=== PATIENT | female | born 1995 | race Caucasian/White ===

== ENCOUNTER 2017-03-14 09:13 | Inpatient (IN) | payer BC ==
[~2017-03-14] VITALS: Ht 160 cm; Wt 65.2 kg
[2017-03-14] MEDS ORDERED: NVLGI/PEN (09:29)
[2017-03-14] MEDS ORDERED: LVMI SC (09:30)
[2017-03-14] MEDS ORDERED: SODIUM CHLORIDE 0.9% 1000ML 1,000 ML IV STA ×2 (09:53→11:17)
[2017-03-14] MEDS ORDERED: NovoLIN-R INSULIN PER UNIT CHARGE IV STA (09:53)
[2017-03-14] MEDS ORDERED: SODIUM CHLORIDE 0.9% 1000ML 1,000 ML IV ONE ×2 (09:53→13:34)
[2017-03-14] MEDS ORDERED: KETOROLAC TROMETHAMINE 30 MG/ML VIAL IV STA (10:13)
[2017-03-14] MEDS ORDERED: LORAZEPAM 2 MG/ML 1 ML VIAL IV STA (10:13)
[2017-03-14] MEDS ORDERED: ONDANSETRON INJ 2 MG/ML 2 ML VIAL IV STA (10:13)
[2017-03-14 10:21] LABS: BASO % 0.3 %; BASO ABS # 0.05 K/uL (0-0.2); COMPLETE YES; HEMATOCRIT 49.8 % (37-47); IG% 0.7 %; LYMPH % 14.6 %; LYMPH ABS # 2.15 K/uL (1.2-3.4); MEAN CELL VOLUME 89.9 fL (80-100); MEAN CORPUSCULAR HEMOGLOBIN 30.9 pg (25-34); MEAN CORPUSCULAR HGB CONC 34.3 g/dl (32-36); MEAN PLATELET VOLUME 11.2 fL (7.4-10.4); MONO % 2.6 %; NEUT % 81.8 %; PLATELET COUNT 321 K/uL (130-400); RED BLOOD COUNT 5.54 M/uL (4.2-5.4); WHITE BLOOD COUNT 14.75 K/uL (4.8-10.8)
--- NOTE | 2017-03-14 10:47 | DIAGNOSTIC IMAGING REPORT ---
CHEST ONE VIEW PORTABLE CLINICAL HISTORY: Chest pain. Flu-like symptoms. COMPARISON STUDY: No previous studies for comparison. FINDINGS: Lung volumes are normal. No pneumothorax or pleural effusion is present. There are hazy bibasilar opacities, left greater than right. Cardiac size is normal. Mediastinal contours are normal. There is no evidence of pulmonary edema. IMPRESSION: Hazy bibasilar opacities, left greater than right. Artifact or atelectasis is favored although consolidation could appear similar. Electronically signed by: Stephane Seo M.D. 03/14/2017 10:46 AM Dictated Date/Time: 03/14/2017 10:45 AM
[2017-03-14 10:52] LABS: URINE APPEARANCE CLEAR (CLEAR); URINE BILIRUBIN NEG (NEG); URINE COLOR YELLOW; URINE EPITHELIAL CELL AUTO >30 /lpf (0-5); URINE NITRITE NEG (NEG); URINE SPECIFIC GRAVITY 1.034 (1.000-1.030); UROBILINOGEN NEG (NEG)
[2017-03-14 10:54] LABS: MANUAL MICROSCOPIC REQUIRED? NO; REVIEW REQ? NO
[2017-03-14 11:40] LABS: PREG INTERNAL NEGATIVE QC NEG CLEAR BACKGROUND; PREG INTERNAL POSITIVE QC POS CONTROL LINE
[2017-03-14 11:51] LABS: ALKALINE PHOSPHATASE 95 U/L (45-117)
[2017-03-14] MEDS ORDERED: DKA GOAL RANGE 150-250 mg/dl 1 EA STA (12:02)
[2017-03-14] MEDS ORDERED: INSULIN IV INFUSION PROTOCOL STA ×2 (12:02→13:34)
[2017-03-14] MEDS ORDERED: SEVERE STRESS LEVEL STA (12:02)
[2017-03-14 12:11] LABS: BLOOD UREA NITROGEN 9 mg/dl (7-18); CREATININE 0.75 mg/dl (0.60-1.20); GLUCOSE 262 mg/dl (70-99)
[2017-03-14 12:12] LABS: ALT/SGPT 14 U/L (12-78); AST/SGOT 10 U/L (15-37); BUN/CREATININE RATIO 12.4 (10-20); CARBON DIOXIDE < 5 mmol/L (21-32); CHLORIDE 109 mmol/L (98-107); POTASSIUM 3.5 mmol/L (3.5-5.1); SODIUM 134 mmol/L (136-145)
[2017-03-14] MEDS ORDERED: NSS + 20MEQ KCL 1000ML 1,000 ML IV SCH (12:15)
[2017-03-14] MEDS ORDERED: INSULIN HUMAN REGULAR IV BOLUS 2.5 UNIT in SYRINGE 0 ML IV STA (12:18)
[2017-03-14] MEDS ORDERED: INSULIN REGULAR 250 UNITS in SODIUM CHLORIDE 0.9% 250ML 250 ML IV SCH (12:20)
[2017-03-14] MEDS ORDERED: DEXTROSE 50% 50 ML SYR IV PRN (12:30)
[2017-03-14] MEDS ORDERED: GLUCAGON FOR INJ 1 MG VIAL SQ PRN (12:30)
[2017-03-14] MEDS ORDERED: GLUCOSE 10 TABS/TUBE PO PRN (12:30)
[2017-03-14] MEDS ORDERED: GLUCOSE 40% GEL 15 GM TUBE PO PRN (12:30)
[2017-03-14 12:42] LABS: VEN BLD GAS O2 SATURATION 61.3 %
[2017-03-14] MEDS ORDERED: PIPERACILLIN/TAZOBACTAM 4.5 GM/100ML D5W IV STA (12:42)
[2017-03-14] MEDS ORDERED: D5NSS + 20MEQ KCL 1,000 ML IV SCH (12:45)
[2017-03-14] MEDS ORDERED: PENDING NSS+20mEq KCL IVF SCH (13:45)
[2017-03-14] MEDS ORDERED: ACETAMINOPHEN 325 MG TAB PO PRN (13:45)
[2017-03-14] MEDS ORDERED: MoRPHine SULFATE 2 MG/ML CARP IV PRN (13:45)
[2017-03-14] MEDS ORDERED: PENDING D5 1/2NS+20mEq KCL IVF SCH (13:45)
[2017-03-14] MEDS ORDERED: ZOLPIDEM TARTRATE 5 MG TAB PO PRN (13:45)
[2017-03-14] MEDS ORDERED: SEVERE STRESS LEVEL ONE (13:45)
[2017-03-14] MEDS ORDERED: PHARMACY GLYCEMIC MGMT CONSULT PRN (13:45)
[2017-03-14] MEDS ORDERED: DKA GOAL RANGE 150-250 mg/dl 1 EA ONE (13:45)
[2017-03-14] MEDS ORDERED: DC ALL PREVIOUSLY ORDERED DIABETES MEDS ONE (13:45)
--- NOTE | 2017-03-14 14:02 | History and Physical ---
History & Physical Date & Time of Service: Mar 14, 2017 at 13:52 Chief Complaint: Flu Like Sx Primary Care Physician: No Doctor, Assigned History of Present Illness Source: patient 21 y/o F Hx DM I. Pt developed nausea and then vomiting over the past 2 days and has not been able to tolerate any PO intake. She did not take her insulin for 2 days therefore. She presented to the hospital anxious and hyperventilating. She denies SOB, CP or significant abdominal pain. She did have some lower back pain. Initial labs confirmed severe DKA. 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 Smoking Status: Current Every Day Smoker Alcohol Use: occasionally Allergies Coded Allergies: Vancomycin (Unverified Allergy, Severe, HIVES, 03/14/17) Home Medications Scheduled Insulin Detemir (Levemir), 27 UNITS SC HS Miscellaneous Medications Insulin Aspart (Novolog Flexpen), Unknown Dose Review of Systems Constitutional: No fever, No chills, No sweats Eyes: No worsening of vision ENT: No hearing loss, No unusual epistaxis, No nasal symptoms Respiratory: No cough, No sputum, No wheezing Cardiovascular: No chest pain, No orthopnea, No PND Abdomen: + nausea, + vomiting Musculoskeletal: + muscle pain (lower back pain), No joint pain Genitourinary - Female: No dysuria, No urinary frequency, No urinary urgency Neurologic: + weakness, No memory loss, No paralysis Psychiatric: No depression symptoms Endocrine: No fatigue Hematologic / Lymphatic: No abnormal bleeding/bruising Integumentary: No rash Allergic / Immunologic: No environmental allergies Physical Exam Vital Signs Date Time Temp Pulse Resp B/P (MAP) Pulse Ox O2 Delivery O2 Flow Rate FiO2 03/14/17 13:27 81 18 118/68 97 Room Air 03/14/17 11:40 81 18 123/77 97 Room Air 03/14/17 10:33 91 24 144/77 100 03/14/17 09:47 36.5 104 28 144/90 100 Room Air General Appearance: + pertinent finding (Average weight young female - mild tachypnea - no distress at time of admission) ENT: normal ENT inspection, hearing grossly normal, TMs normal, pharynx normal Neck: supple, no JVD Respiratory/Chest: chest non-tender, lungs clear, normal breath sounds Cardiovascular: regular rate, rhythm, no edema, no gallop Abdomen/GI: normal bowel sounds, non tender, soft Back: normal inspection, no CVA tenderness, no muscle spasm, normal range of motion Extremities/Musculoskelatal: normal inspection, no calf tenderness, normal capillary refill, no pedal edema, normal range of motion Neurologic/Psych: oil dipper II-XII nml as tested, no motor/sensory deficits, alert, normal mood/affect, normal reflexes, oriented x 3 Skin: normal color, warm/dry, no rash Diagnostics Laboratory Results Results Past 24 Hours Test 03/14/17 09:20 03/14/17 09:35 03/14/17 11:10 03/14/17 11:33 Range/Units White Blood Count 14.75 4.8-10.8 K/uL Red Blood Count 5.54 4.2-5.4 M/uL Hemoglobin 17.1 12.0-16.0 g/dL Hematocrit 49.8 37-47 % Mean Corpuscular Volume 89.9 80-100 fL Mean Corpuscular Hemoglobin 30.9 25-34 pg Mean Corpuscular Hemoglobin Concent 34.3 32-36 g/dl Platelet Count 321 130-400 K/uL Mean Platelet Volume 11.2 7.4-10.4 fL Neutrophils (%) (Auto) 81.8 % Lymphocytes (%) (Auto) 14.6 % Monocytes (%) (Auto) 2.6 % Eosinophils (%) (Auto) 0.0 % Basophils (%) (Auto) 0.3 % Neutrophils # (Auto) 12.06 1.4-6.5 K/uL Lymphocytes # (Auto) 2.15 1.2-3.4 K/uL Monocytes # (Auto) 0.38 0.11-0.59 K/uL Eosinophils # (Auto) 0.00 0-0.5 K/uL Basophils # (Auto) 0.05 0-0.2 K/uL RDW Standard Deviation 42.8 36.4-46.3 fL RDW Coefficient of Variation 13.0 11.5-14.5 % Immature Granulocyte % (Auto) 0.7 % Immature Granulocyte # (Auto) 0.11 0.00-0.02 K/uL Urine Color YELLOW Urine Appearance CLEAR CLEAR Urine pH 5.0 4.5-7.5 Urine Specific [place] 1.034 1.000-1.030 Urine Protein 2+ NEG Urine Glucose (UA) 3+ NEG Urine Ketones 4+ NEG Urine Occult Blood TRACE NEG Urine Nitrite NEG NEG Urine Bilirubin NEG NEG Urine Urobilinogen NEG NEG Urine Leukocyte Esterase NEG NEG Urine WBC (Auto) 1-5 0-5 /hpf Urine RBC (Auto) 0-4 0-4 /hpf Urine Hyaline Casts (Auto) 5-10 0-5 /lpf Urine Epithelial Cells (Auto) >30 0-5 /lpf Urine Bacteria (Auto) NEG NEG Sodium Level 134 136-145 mmol/L Potassium Level 3.5 3.5-5.1 mmol/L Chloride Level 109 98-107 mmol/L Carbon Dioxide Level < 5 21-32 mmol/L Anion Gap 24.0 3-11 mmol/L Blood Urea Nitrogen 9 7-18 mg/dl Creatinine 0.75 0.60-1.20 mg/dl Estimated GFR () 133.0 Estimated GFR (Non- 114.7 BUN/Creatinine Ratio 12.4 10-20 Random Glucose 262 70-99 mg/dl Calcium Level 8.0 8.5-10.1 mg/dl Total Bilirubin 0.3 0.2-1 mg/dl Direct Bilirubin < 0.1 0-0.2 mg/dl Aspartate Amino Transf (AST/SGOT) 10 15-37 U/L Alanine Aminotransferase (ALT/SGPT) 14 12-78 U/L Alkaline Phosphatase 95 45-117 U/L Total Protein 7.8 6.4-8.2 gm/dl Albumin 3.5 3.4-5.0 gm/dl Lipase 92 73-393 U/L Human Chorionic Gonadotropin, Qual NEG NEG Test 03/14/17 12:30 03/14/17 13:05 Range/Units Venous Blood pH 7.09 7.36-7.41 Venous Blood Partial Pressure CO2 24 38.0-50.0 mmHg Venous Blood Partial Pressure O2 32 mmHg Venous Blood HCO3 7 mmol/L Venous Blood Oxygen Saturation 61.3 % Venous Blood Base Excess -21.0 mEq/L Microbiology Results 03/14/17 Blood Culture, Received Pending 03/14/17 Blood Culture, Received Pending 03/14/17 Urine Culture, Received Pending Impression Assessment and Plan 21 y/o F Hx DM I. Pt developed nausea and then vomiting over the past 2 days and has not been able to tolerate any PO intake. She did not take her insulin for 2 days therefore. She presented to the hospital anxious and hyperventilating. She denies SOB, CP or significant abdominal pain. She did have some lower back pain. Initial labs confirmed severe DKA. Pt was started on IV insulin and aggressive hydration. She is admitted to the ICU with a DKA protocol including frequent electrolyte monitoring, continued fluids and an insulin drip. An ABG will be repeated as she was markedly acidotic on arrival. Leukocytosis is noted although this is likely due to stress as there is no evidence of an infectious process at present. Smoking cessation advice will be provided. Full code - Heparin prophylaxis Total time for this admit including review of labs, meds, imaging - discussion with pt and ER attending - 38 min Level of Care Critical Care Resuscitation Status FULL RESUSCITATION VTE Prophylaxis VTE Risk Assessment Done? Y/N: Yes Risk Level: Low Given or contraindicated: Unfractionated heparin SQ
--- NOTE | 2017-03-14 14:24 | Pharmacy Progress Note ---
Glycemic Control Intl Consult Date of Service Mar 14, 2017. Scope Glycemic Pharmacist consulted by Dr Caceres on 03/14/17 for glycemic control and to write orders per [facility] inpatient glycemic control protocol Objective Accuchecks BSG (last 24hrs): Test 03/14/17 11:10 Random Glucose 262 mg/dl (70-99) Laboratory Data (last 24hrs) Test 03/14/17 09:20 03/14/17 11:10 White Blood Count 14.75 K/uL Red Blood Count 5.54 M/uL Hemoglobin 17.1 g/dL Hematocrit 49.8 % Mean Corpuscular Volume 89.9 fL Mean Corpuscular Hemoglobin 30.9 pg Mean Corpuscular Hemoglobin Concent 34.3 g/dl Platelet Count 321 K/uL Mean Platelet Volume 11.2 fL Neutrophils (%) (Auto) 81.8 % Lymphocytes (%) (Auto) 14.6 % Monocytes (%) (Auto) 2.6 % Eosinophils (%) (Auto) 0.0 % Basophils (%) (Auto) 0.3 % Neutrophils # (Auto) 12.06 K/uL Lymphocytes # (Auto) 2.15 K/uL Monocytes # (Auto) 0.38 K/uL Eosinophils # (Auto) 0.00 K/uL Basophils # (Auto) 0.05 K/uL Anion Gap 24.0 mmol/L BUN/Creatinine Ratio 12.4 Blood Urea Nitrogen 9 mg/dl Creatinine 0.75 mg/dl Potassium Level 3.5 mmol/L Sodium Level 134 mmol/L Recent Pertinent Medications Outpatient Anti-diabetic Regimen: * Levemir + Novolog (doses need clarified) The patient is currently receiving: * Insulin drip initiated in the ED Assessment & Plan ASSESSMENT: * 21 yo T1DM F admitted with N/V, DKA --> initiated on insulin drip in the ED * Symptoms, serum bicarb, ketones and anion gap all indicative of DKA * A1c ordered with AM labs as patient is unknown to the glycemic service * From admission note, patient has gone at least 48 hours without insulin and insulin doses will need confirmed when patient feeling better * For now, continue insulin drip in addition to dextrose containing fluids to maintain BSGs so that insulin drip stays on throughout the night so that fluid loss and labs can be corrected * Follow up in the AM PLAN FOR INPATIENT GLYCEMIC CONTROL: * Starting IV insulin infusion per DKA protocol * Goal Range 150 - 250 mg/dl * In the critical care setting, continuous IV insulin infusion has been shown to be the best method for achieving glycemic targets. * Please note that the plan above was derived based on current level of insulin resistance and hospital stress. These recommendations are appropriate for inpatient admission only. Plan of care upon discharge will need to be reassessed to avoid potential outpatient hypo/hyperglycemia. Thank you.
--- NOTE | 2017-03-14 15:25 | Critical Care Consultation ---
Critical Care Consultation Date of Consultation: Mar 14, 2017. Attending Physician: Reason for Consultation: DKA History of Present Illness This is a 21 y/o female with hx of type I DM on insulin, presented to the ED complaining of nausea and vomiting X2days. She was anxious and hyperventilating upon arrival to the ED. Patient reports that this morning she was feeling really sick on her stomach and also vomit X1. She didn't eat anything yesterday because couldn't tolerate PO. She didn't take her insulin for past 2 days because she was not feeling well. Patient states that few days ago she was not feeling well, has fullness of the ear. She went to the [facility] and they prescribed her prednisone in tapered dose starting with 60mg. She took the prednisone for past 2 days. In ED her glucose was 262, CO2 <5, anion gap 24, consist with DKA. Also complains of b/l shoulder and back pain which has resolved upon arrival to ICU. Upon examining the patient in ICU, she still complains of nausea but states that she is feeling better than this morning. Patient denies SOB, chest pain, abdominal pain, palpitation, fever, or any other symptoms. 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: student Allergies Coded Allergies: Vancomycin (Unverified Allergy, Severe, HIVES, 03/14/17) Home Medications Scheduled Insulin Detemir (Levemir), 27 UNITS SC HS Miscellaneous Medications Insulin Aspart (Novolog Flexpen), Unknown Dose Current Inpatient Medications Current Inpatient Medications Medications (Trade) Dose Ordered Sig/Sharron Route Start Time Stop Time Status Last Admin Dose Admin Insulin Human Regular 250 units/ Sodium Chloride 252.5 ml @ 0 mls/hr TODAY@1220 IV 03/14/17 12:20 03/14/17 19:00 03/14/17 13:23 2.4 MLS/HR Glucose (Glucose 40% Gel) UD PRN PO 03/14/17 12:30 04/13/17 12:29 Glucose (Glucose Chew Tab) 1 tabs UD PRN PO 03/14/17 12:30 04/13/17 12:29 Dextrose (Dextrose 50% 50ML Syringe) 50 ml UD PRN IV 03/14/17 12:30 04/13/17 12:29 Glucagon (Glucagon Inj) 1 mg UD PRN SQ 03/14/17 12:30 04/13/17 12:29 Potassium Chloride/Dextrose/ Sod Cl 1,000 ml @ 200 mls/hr Q5H IV 03/14/17 12:45 03/14/17 17:44 03/14/17 13:24 200 MLS/HR Insulin Aspart (novoLOG ASPART) SLIDING SCALE PCHS SC 03/14/17 19:00 04/13/17 18:59 UNV Sodium Chloride 1,000 ml @ 999 mls/hr Q1H1M ONCE IV 03/14/17 13:34 03/14/17 14:34 UNV Miscellaneous Information (PENDING NSS+20mEq KCL IVF) 1 ea Q2H N/A 03/14/17 13:45 04/13/17 13:44 UNV Miscellaneous Information (PENDING D5 1/ 2NS+20mEq KCL IVF) 1 ea Q2H N/A 03/14/17 13:45 04/13/17 13:44 UNV Miscellaneous Information (Consult Glycemic Management Pharmacy) 1 ea UD PRN N/A 03/14/17 13:45 04/13/17 13:44 Heparin Sodium (Porcine) (Heparin Sq 5000 Unit/0.5ml) 5,000 unit Q8H SQ 03/14/17 13:45 04/13/17 13:44 UNV Acetaminophen (Tylenol Tab) 650 mg Q4H PRN PO 03/14/17 13:45 04/13/17 13:44 Zolpidem Tartrate (Ambien Tab) 5 mg HSZ PRN PO 03/14/17 13:45 04/13/17 13:44 Morphine Sulfate (MoRPHine SULFATE INJ) 2 mg Q2H PRN IV 03/14/17 13:45 03/28/17 13:44 Review of Systems Constitutional: No fever, No chills, No sweats, No weight loss ENT: No sore throat Respiratory: No cough, No wheezing, No shortness of breath, No dyspnea on exertion, No dyspnea at rest Cardiovascular: No chest pain, No edema, No palpitations Abdomen: + nausea, + vomiting, No pain, No diarrhea, No constipation Musculoskeletal: + problem reported (lower back pain) Genitourinary - Female: No dysuria, No urinary frequency, No urinary urgency Neurologic: + weakness, No balance problems Hematologic / Lymphatic: No abnormal bleeding/bruising Integumentary: No rash Physical Exam Date Time Temp Pulse Resp B/P (MAP) Pulse Ox O2 Delivery O2 Flow Rate FiO2 03/14/17 13:27 81 18 118/68 97 Room Air 03/14/17 11:40 81 18 123/77 97 Room Air 03/14/17 10:33 91 24 144/77 100 03/14/17 09:47 36.5 104 28 144/90 100 Room Air General Appearance: well-appearing, WD/WN, no apparent distress Head: normocephalic, atraumatic Eyes: PERRLA, EOMI, conjunctivae normal ENT: normal ear exam, normal nasal exam, normal mouth exam, normal throat exam Neck: no tenderness, trachea midline, supple Respiratory: breath sounds normal, clear to auscultation, no respiratory distress Cardiovasular: regular rate/rhythm, normal S1S2, no M/G/R Abdomen: non tender, normal bowel sounds, no masses Neuro: alert, oriented x 3, normal sensation, normal speech Psychiatric: normal affect Laboratory Results Last 24 Hours Test 03/14/17 09:20 03/14/17 09:35 03/14/17 11:10 03/14/17 11:33 White Blood Count 14.75 K/uL Red Blood Count 5.54 M/uL Hemoglobin 17.1 g/dL Hematocrit 49.8 % Mean Corpuscular Volume 89.9 fL Mean Corpuscular Hemoglobin 30.9 pg Mean Corpuscular Hemoglobin Concent 34.3 g/dl Platelet Count 321 K/uL Mean Platelet Volume 11.2 fL Neutrophils (%) (Auto) 81.8 % Lymphocytes (%) (Auto) 14.6 % Monocytes (%) (Auto) 2.6 % Eosinophils (%) (Auto) 0.0 % Basophils (%) (Auto) 0.3 % Neutrophils # (Auto) 12.06 K/uL Lymphocytes # (Auto) 2.15 K/uL Monocytes # (Auto) 0.38 K/uL Eosinophils # (Auto) 0.00 K/uL Basophils # (Auto) 0.05 K/uL RDW Standard Deviation 42.8 fL RDW Coefficient of Variation 13.0 % Immature Granulocyte % (Auto) 0.7 % Immature Granulocyte # (Auto) 0.11 K/uL Urine Color YELLOW Urine Appearance CLEAR Urine pH 5.0 Urine Specific [place] 1.034 Urine Protein 2+ Urine Glucose (UA) 3+ Urine Ketones 4+ Urine Occult Blood TRACE Urine Nitrite NEG Urine Bilirubin NEG Urine Urobilinogen NEG Urine Leukocyte Esterase NEG Urine WBC (Auto) 1-5 /hpf Urine RBC (Auto) 0-4 /hpf Urine Hyaline Casts (Auto) 5-10 /lpf Urine Epithelial Cells (Auto) >30 /lpf Urine Bacteria (Auto) NEG Sodium Level 134 mmol/L Potassium Level 3.5 mmol/L Chloride Level 109 mmol/L Carbon Dioxide Level < 5 mmol/L Anion Gap 24.0 mmol/L Blood Urea Nitrogen 9 mg/dl Creatinine 0.75 mg/dl Estimated GFR () 133.0 Estimated GFR (Non- 114.7 BUN/Creatinine Ratio 12.4 Random Glucose 262 mg/dl Calcium Level 8.0 mg/dl Total Bilirubin 0.3 mg/dl Direct Bilirubin < 0.1 mg/dl Aspartate Amino Transf (AST/SGOT) 10 U/L Alanine Aminotransferase (ALT/SGPT) 14 U/L Alkaline Phosphatase 95 U/L Total Protein 7.8 gm/dl Albumin 3.5 gm/dl Lipase 92 U/L Human Chorionic Gonadotropin, Qual NEG Test 03/14/17 12:30 03/14/17 13:05 Venous Blood pH 7.09 Venous Blood Partial Pressure CO2 24 mmHg Venous Blood Partial Pressure O2 32 mmHg Venous Blood HCO3 7 mmol/L Venous Blood Oxygen Saturation 61.3 % Venous Blood Base Excess -21.0 mEq/L Bedside Lactic Acid Venous 1.61 mmol/L Assessment & Plan This is a 21 y/o female with hx of type I DM on insulin presented to the ED with DKA. Patient is admitted to the ICU for close monitoring. In ED glucose was 262, CO2 <5, and anion gap 24. Patient DKA most likely 2/2 to viral illness combined with high dose of prednisone. Neuro - * CAM ICU: NEGATIVE. * Acetaminophen 650mg q4h prn * Morphine 2mg q2h prn Cardiac - * EKG in ED showed NSR * no h/o cardiac problem Respiratory - * No h/o pulmonary disease. * On room air maintaining O2 * Monitor pulse oximetry. * Supplemental O2 as needed. * VBG q4h per DKA protocol * CXR showed hazy bibasilar opacities, left greater than right. Artifact or atelectasis is favored although consolidation could appear similar. Received bolus of Zosyn in ED. It is very less likely the X-ray finding infectious in nature. Will continue to monitor. GI - * Diet : diabetics diet RENAL/LYTES - * Continue with D5 NSS+20meq KCL @200ml/hr * Corrected Sodium is 138 * Closely monitor electrolytes, check per DKA protocol (q4h) and supplement as needed - * No Chan * Full bathroom privilege ENDO - * Diabetics Ketoacidosis/hx of IDDM type I * On admission glucose was 262, CO2 <5, anion gap 24 * Continue with hydration, D5 NSS+20meq KCL @200mls/hr * On insulin drip and transition to IV insulin per DKA protocol * Check electrolytes and VGB q4h and correct as needed HEME - * No h/o of heme problem * H&H 17.1 and 49.8, most likely 2/2 dehydration ID - * No concerns for infection at this point. Most likely had viral illness * Elevated WBC, most likely 2/2 stress, no signs of infection at this moment. Patient received bolus of Zosyn in ED. * Will monitor fever curve. * BCx and UCx are pending LINES/IV ACCESS - * PIVs intact DVT PROPHYLAXIS - * Heparin 5000unit q8h * * * Resident Physician Supervision Note: I was present with Dr. Elizabeth Cuevsa during the history and exam. I discussed the case with the resident and agree with the findings and plan as documented in the note. 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 She stopped taking insulin as she was not able to eat. She was found to have DKA. Patient stated that she developed right ear fullness couple of days ago. She was prescribed prednisone by urgent care center. She took 60 mg yesterday and 50 mg today. Patient was given IV insulin, started on IV fluids and transferred critically ill to the surgical intensive care unit for further management. On my physical examination she looks slightly dehydrated with dry mouth mucosa. She is alert and oriented 3. Lungs were clear, heart was beating regularly, abdomen was soft and nontender with good bowel sounds, lower extremity swelling well-perfused. Right ear examination revealed competent tympanitic membrane, no discharge. Presentation is consistent with DKA likely promoted by viral infection, exacerbated by prednisone and lack of insulin. No obvious bacterial infection. We will continue with fluid resuscitation, replace electrolytes including severe hypophosphatemia and hypokalemia, continue with insulin drip closely watching metabolic parameters. Patient's clinical condition and management was extensively discussed with patient and her parents at the bedside. She is full code. CCT 32 min. Documented By: True Biswas
[2017-03-14 15:40] VITALS: BP 114/74; PULSE 94; TEMP 36.1; O2SAT 95; BMI 25.0
[2017-03-14] MEDS ORDERED: INFLUENZA ADMINISTRATION CHARGE ONE (16:15)
[2017-03-14] MEDS ORDERED: INFLUENZA VIRUS QUAD VACCINE 0.5 ML SYR IM. ONE (16:15)
[2017-03-14] MEDS ORDERED: PNEUMOCOCCAL POLYSACCHARIDES 25 MCG/0.5 ML VIAL/SYR IM. ONE (16:15)
[2017-03-14] MEDS ORDERED: PNEUMOCOCCAL ADMINISTRATION CHARGE ONE (16:15)
[2017-03-14 16:31] LABS: INR 0.9 (0.9-1.1); PROTHROMBIN TIME (PATIENT) 9.4 SECONDS (9.0-12.0)
[2017-03-14 16:32] LABS: ISTAT ALLEN TEST Pass; ISTAT ARTERIAL BLOOD GAS HCO3 7 meq/L (19-24); ISTAT ARTERIAL BLOOD GAS PCO2 19 mmHg (35-46); ISTAT ARTERIAL BLOOD GAS PO2 113 mmHg (80-95); ISTAT ARTERIAL BLOOD GAS pH 7.15 (7.35-7.45); ISTAT CARBON DIOXIDE 7 mEq/l (24-31); ISTAT DELIVERY SYSTEM Room Air; ISTAT SITE R Radial
--- NOTE | 2017-03-14 16:58 | EMERGENCY ROOM VISIT NOTE ---
History Report prepared by [place]: David Boateng Under the Supervision of: Dr. Joseluis Vincent M.D. First contact with patient: 09:45 Chief Complaint: VOMITING Stated Complaint: FLU LIKE SX Nursing Triage Summary: pt here with n/v x 2 days. pt is a iddm. pt states has not taken insulin x 2 days. did not eat yesterday. pt states has pain in bilateral lower back and feels tingly all over. pt very anxious upon arrival and hyperventilating. History of Present Illness The patient is a 21 year old female who presents to the Emergency Room with complaints of nausea and vomiting. She is a type I diabetic. She's felt sick for 2 or 3 days now. His started with right earache and sore throat. Nausea and vomiting since yesterday. She did not take her insulin because she was not eating anything. She has had a sore throat and cough at times with some white phlegm she just says she feels that she has diffuse body aches and cramps in her lower abdomen. Denies denies dysuria hematuria. No diarrhea. No fall or trauma. No history of similar. Source of History: patient, parent, family Review of Systems See HPI for pertinent positives & negatives. A total of 10 systems reviewed and were otherwise negative. Past Medical & Surgical Medical Problems: (1) DKA, type 1 (2) Type 1 diabetes mellitus Old medical records were attempted to be reviewed but there are no old records at this hospital. Nurse's notes were reviewed and I agree with. Denies history of DKA Family History No pertinent family history stated. Social History Smoking Status: Never Smoker Drug Use: none Marital Status: single Occupation Status: [employer] student Current/Historical Medications Scheduled Insulin Detemir (Levemir), 27 UNITS SC HS Miscellaneous Medications Insulin Aspart (Novolog Flexpen), Unknown Dose Allergies Coded Allergies: Vancomycin (Unverified Allergy, Severe, HIVES, 03/14/17) Physical Exam Vital Signs Date Time Temp Pulse Resp B/P (MAP) Pulse Ox O2 Delivery O2 Flow Rate FiO2 03/14/17 13:27 81 18 118/68 97 Room Air 03/14/17 11:40 81 18 123/77 97 Room Air 03/14/17 10:33 91 24 144/77 100 03/14/17 09:47 36.5 104 28 144/90 100 Room Air Physical Exam General: Well developed well nourished mild to moderately ill-appearing young female who appears mildly tachypneic and anxious but otherwise in no acute distress, breathing comfortably on room air. Normal speech HEENT: Normal cephalic atraumatic. Pupils are equal round and reactive to light. Sclerae are anicteric. Extraocular movements are intact. Oropharynx is pink with somewhat dry mucous membranes. No swelling of the mouth lips or tongue. Neck: Supple with a midline trachea. No meningeal signs or stiffness, no JVD or bruits. No Stridor. Chest: Clear to auscultation bilaterally. No wheezes or rhonchi. No increased work of breathing. Heart: Regular rate and rhythm without murmurs or gallops. Abdomen: Soft nontender, nondistended without rebound guarding or rigidity. Extremities: No cyanosis clubbing or edema. No calf tenderness or assymetry Spine/Back. Non tender to palpation. No CVA tenderness Skin: Good turgor without rashes. Neurologic exam: Cranial nerves two through 12 are intact. Motor and sensation are intact and symmetrical throughout. Medical Decision & Procedures ER Provider Diagnostic Interpretation: X-ray results as stated below per interpretation by me and the radiologist: CHEST ONE VIEW PORTABLE FINDINGS: Lung volumes are normal. No pneumothorax or pleural effusion is present. There are hazy bibasilar opacities, left greater than right. Cardiac size is normal. Mediastinal contours are normal. There is no evidence of pulmonary edema. IMPRESSION: Hazy bibasilar opacities, left greater than right. Artifact or atelectasis is favored although consolidation could appear similar. Electronically signed by: Stephane Seo M.D. 03/14/2017 10:46 AM Laboratory Results 03/14/17 09:20 Red Blood Count 5.54, Mean Corpuscular Volume 89.9, Mean Corpuscular Hemoglobin 30.9, Mean Corpuscular Hemoglobin Concent 34.3, Mean Platelet Volume 11.2, Neutrophils (%) (Auto) 81.8, Lymphocytes (%) (Auto) 14.6, Monocytes (%) (Auto) 2.6, Eosinophils (%) (Auto) 0.0, Basophils (%) (Auto) 0.3, Neutrophils # (Auto) 12.06, Lymphocytes # (Auto) 2.15, Monocytes # (Auto) 0.38, Eosinophils # (Auto) 0.00, Basophils # (Auto) 0.05 Test 03/14/17 09:20 03/14/17 09:35 03/14/17 11:10 03/14/17 11:33 White Blood Count 14.75 K/uL (4.8-10.8) Red Blood Count 5.54 M/uL (4.2-5.4) Hemoglobin 17.1 g/dL (12.0-16.0) Hematocrit 49.8 % (37-47) Mean Corpuscular Volume 89.9 fL (80-100) Mean Corpuscular Hemoglobin 30.9 pg (25-34) Mean Corpuscular Hemoglobin Concent 34.3 g/dl (32-36) Platelet Count 321 K/uL (130-400) Mean Platelet Volume 11.2 fL (7.4-10.4) Neutrophils (%) (Auto) 81.8 % Lymphocytes (%) (Auto) 14.6 % Monocytes (%) (Auto) 2.6 % Eosinophils (%) (Auto) 0.0 % Basophils (%) (Auto) 0.3 % Neutrophils # (Auto) 12.06 K/uL (1.4-6.5) Lymphocytes # (Auto) 2.15 K/uL (1.2-3.4) Monocytes # (Auto) 0.38 K/uL (0.11-0.59) Eosinophils # (Auto) 0.00 K/uL (0-0.5) Basophils # (Auto) 0.05 K/uL (0-0.2) RDW Standard Deviation 42.8 fL (36.4-46.3) RDW Coefficient of Variation 13.0 % (11.5-14.5) Immature Granulocyte % (Auto) 0.7 % Immature Granulocyte # (Auto) 0.11 K/uL (0.00-0.02) Urine Color YELLOW Urine Appearance CLEAR (CLEAR) Urine pH 5.0 (4.5-7.5) Urine Specific [place] 1.034 (1.000-1.030) Urine Protein 2+ (NEG) Urine Glucose (UA) 3+ (NEG) Urine Ketones 4+ (NEG) Urine Occult Blood TRACE (NEG) Urine Nitrite NEG (NEG) Urine Bilirubin NEG (NEG) Urine Urobilinogen NEG (NEG) Urine Leukocyte Esterase NEG (NEG) Urine WBC (Auto) 1-5 /hpf (0-5) Urine RBC (Auto) 0-4 /hpf (0-4) Urine Hyaline Casts (Auto) 5-10 /lpf (0-5) Urine Epithelial Cells (Auto) >30 /lpf (0-5) Urine Bacteria (Auto) NEG (NEG) Total Bilirubin 0.3 mg/dl (0.2-1) Direct Bilirubin < 0.1 mg/dl (0-0.2) Aspartate Amino Transf (AST/SGOT) 10 U/L (15-37) Alanine Aminotransferase (ALT/SGPT) 14 U/L (12-78) Alkaline Phosphatase 95 U/L (45-117) Total Protein 7.8 gm/dl (6.4-8.2) Albumin 3.5 gm/dl (3.4-5.0) Lipase 92 U/L (73-393) Human Chorionic Gonadotropin, Qual NEG (NEG) Influenza Type A Antigen Neg for Influ A (NEG) Influenza Type B Antigen Neg for Influ B (NEG) Test 03/14/17 12:30 03/14/17 13:05 Venous Blood pH 7.09 (7.36-7.41) Venous Blood Partial Pressure CO2 24 mmHg (38.0-50.0) Venous Blood Partial Pressure O2 32 mmHg Venous Blood HCO3 7 mmol/L Venous Blood Oxygen Saturation 61.3 % Venous Blood Base Excess -21.0 mEq/L Bedside Lactic Acid Venous 1.61 mmol/L (0.90-1.70) Laboratory studies as stated above per my review. Medications Administered Medications (Trade) Dose Ordered Sig/Sharron Route Start Time Stop Time Status Last Admin Dose Admin Sodium Chloride 1,000 ml @ 999 mls/hr Q1H1M STAT IV 03/14/17 09:53 03/14/17 10:53 DC 03/14/17 10:09 999 MLS/HR Sodium Chloride 1,000 ml @ 200 mls/hr Q5H ONCE IV 03/14/17 09:53 03/14/17 12:04 DC 03/14/17 10:31 200 MLS/HR Insulin Human Regular (novoLIN-R U-100 PER UNIT) 10 units NOW STAT IV 03/14/17 09:53 03/14/17 09:56 DC 03/14/17 10:08 10 UNITS Ketorolac Tromethamine (Toradol Inj) 30 mg NOW STAT IV 03/14/17 10:13 03/14/17 10:14 DC 03/14/17 10:31 30 MG Ondansetron HCl (Zofran Inj) 4 mg NOW STAT IV 03/14/17 10:13 03/14/17 10:14 DC 03/14/17 10:31 4 MG Lorazepam (Ativan Inj) 0.5 mg NOW STAT IV 03/14/17 10:13 03/14/17 10:14 DC 03/14/17 10:32 0.5 MG Sodium Chloride 1,000 ml @ 999 mls/hr Q1H1M STAT IV 03/14/17 11:17 03/14/17 12:19 DC 03/14/17 11:17 999 MLS/HR Insulin Human Regular 2.5 unit/ Syringe 2.5 ml @ 5 mls/min NOW STAT IV 03/14/17 12:18 03/14/17 12:19 DC 03/14/17 13:16 5 MLS/MIN Insulin Human Regular 250 units/ Sodium Chloride 252.5 ml @ 0 mls/hr TODAY@1220 IV 03/14/17 12:20 03/15/17 11:29 03/14/17 13:23 2.4 MLS/HR Potassium Chloride/Dextrose/ Sod Cl 1,000 ml @ 200 mls/hr Q5H IV 03/14/17 12:45 03/14/17 17:44 03/14/17 13:24 200 MLS/HR Piperacillin Sod/ Tazobactam Sod (Zosyn Iv) 4.5 gm NOW STAT IV 03/14/17 12:42 03/14/17 12:43 DC 03/14/17 14:17 4.5 GM ECG Indication: vomiting Rate (beats per minute): 81 Rhythm: normal sinus Findings: no acute ischemic change, no ectopy, other (No findings to suggest hypokalemia) Comparison ECG Date: no prior available ED Course 0943: Past medical records reviewed. The patient was evaluated in room B4B, and a complete history and physical examination were performed. 0953: Ordered Novolin-R U-100 per unit 10 units IV, Sodium Chloride 1000 ml @ 200 mls/hr IV, Sodium Chloride 1000 ml @ 999 mls/hr IV. 1013: Ordered Ativan Inj 0.5 mg IV, Zofran Inj 0.5 mg IV, Toradol Inj 30 mg IV. 1117: Ordered Sodium Chloride 1000 ml @ 999 mls/hr IV. 1212: Upon reevaluation, the patient is resting comfortably. I discussed the results and treatment plan with the patient. She verbalized agreement of the treatment plan. The patient will be evaluated for further management. 1215: Ordered Potassium Chloride/Sodium Chloride 2.5 ml @ 5 mls/hr IV. 1230: Ordered Glucagon 1 mg SQ, Dextrose 50% 50 mL IV, Glucose Chew Tab PO, Glucose 40% Gel PO. Medical Decision Differentials include, but are not limited to DKA, dehydration, infection, electrolyte or metabolic abnormalities, This patient comes in as described above. She is placed in room B4. She has felt ill for the last several days. She has a type I diabetic. Her blood sugar on route was over 400 apparently. IV access was established and she was hydrated with IV normal saline she received several liters in the emergency department. I also gave her 10 units regular insulin IV. Her white count came back mildly elevated. Chest x-ray shows atelectasis versus infiltrate in the base. She was covered with antibiotics was given Zosyn 4.5 g IV. We also started on insulin drip. Her CO2 came back markedly low at less than 5. The rest of her electrolytes looked reasonably okay however and a potassium fading was slightly in the low side. We changed her fluids to include potassium as she was further rehydrated. And also added dextrose when her blood sugar was less than 200. I did consult the [facility] hospitalist and they saw her in the emergency department. She will be admitted for further treatment and evaluation. Medication Reconcilliation Current Medication List: was personally reviewed by me Blood Pressure Screening Patient's blood pressure: Elevated blood pressure Blood pressure disposition: Elevated BP felt to be situational Consults Time Called: 1200 Consulting Physician: Dr. Nicki JUAN Returned Call: 1210 Discussed the patient's case. The patient will be evaluated for further management. Impression Primary Impression: DKA, type 1 Additional Impression: Dehydration Critical Care Due to the patient's need for multiple IV interventions and significant acidosis /DKA, I have personally spent greater than 30 minutes of critical care time in the direct management of this patient. This includes bedside care, interpretation of diagnostic studies, and testing, discussion with consultants, patient, and family members, and other required patient management activities. This 30 minutes is in excess of all separately billable procedures. Scribe Attestation The scribe's documentation has been prepared under my direction and personally reviewed by me in its entirety. I confirm that the note above accurately reflects all work, treatment, procedures, and medical decision making performed by me. Departure Information Dispostion Being Evaluated By Hospitalist Referrals No Doctor, Assigned (PCP) Patient Instructions My [facility] Problem Qualifiers
[2017-03-14 17:00] VITALS: BP 121/78; PULSE 87; O2SAT 100
[2017-03-14 17:16] LABS: BUN/CREATININE RATIO 9.7 (10-20); CALCIUM 7.5 mg/dl (8.5-10.1); CREATININE 0.85 mg/dl (0.60-1.20); MAGNESIUM 1.9 mg/dl (1.8-2.4); PHOSPHORUS 0.7 mg/dl (2.5-4.9); POTASSIUM 3.3 mmol/L (3.5-5.1)
[2017-03-14] MEDS ORDERED: POTASSIUM PHOS 3 MMOL/1 ML INFUSION IV STA (17:28)
[2017-03-14] MEDS ORDERED: POTASSIUM CHLORIDE 20 MEQ TABCR PO STA (17:28)
[2017-03-14 18:00] VITALS: BP 106/58; PULSE 94; O2SAT 99
[2017-03-14] MEDS ORDERED: POTASSIUM PHOSPHATE INJ 30 MMOL in SODIUM CHLORIDE 0.9% 500ML 500 ML IV ONE (18:00)
[2017-03-14] MEDS: D5NSS + 20MEQ KCL 1,000 ML IV SCH (18:16)
[2017-03-14] MEDS ORDERED: POTASSIUM CHLORIDE 20 MEQ TABCR PO ONE (18:30)
[2017-03-14] MEDS: INSULIN ASPART 100 UNITS/ML 3 ML PEN SC SCH ×2 (18:52→21:00)
[2017-03-14 20:00] VITALS: BP 114/61; PULSE 100; TEMP 37; O2SAT 100
[2017-03-14 20:57] LABS: BUN/CREATININE RATIO 7.9 (10-20); CALCIUM 7.5 mg/dl (8.5-10.1); CREATININE 0.8 mg/dl (0.60-1.20); MAGNESIUM 1.7 mg/dl (1.8-2.4); PHOSPHORUS 1.2 mg/dl (2.5-4.9); POTASSIUM 3.5 mmol/L (3.5-5.1)
[2017-03-14 21:12] LABS: BETA-HYDROXYBUTYRATE 10.25 mg/dL (0.2-2.81)
[2017-03-14] MEDS ORDERED: MAGNESIUM SULFATE 1GM / D5W 1 GM in PREMIXED IN D5W 100 ML IV STA (21:15)
[2017-03-14] MEDS: HEPARIN SOD 5000 UNIT/0.5 ML CARP SQ SCH (21:43)
[2017-03-14 22:00] VITALS: BP 112/57; PULSE 87; O2SAT 100
[2017-03-14 23:59] VITALS: O2SAT 98
[2017-03-15] VITALS (12 sets, daily range): BP systolic 101–112; BP diastolic 51–75; PULSE 77–93; TEMP 36.3–36.8; O2SAT 98; Ht 160 cm; Wt 65.2 kg
[2017-03-15] MEDS: D5NSS + 20MEQ KCL 1,000 ML IV SCH ×3 (00:12→11:08)
[2017-03-15 00:55] LABS: BLOOD UREA NITROGEN 7 mg/dl (7-18); BUN/CREATININE RATIO 11.9 (10-20); CALCIUM 7.4 mg/dl (8.5-10.1); CARBON DIOXIDE 16 mmol/L (21-32); CHLORIDE 116 mmol/L (98-107); CREATININE 0.57 mg/dl (0.60-1.20); GLUCOSE 221 mg/dl (70-99); MAGNESIUM 2.3 mg/dl (1.8-2.4); PHOSPHORUS 1.7 mg/dl (2.5-4.9); POTASSIUM 3.6 mmol/L (3.5-5.1); SODIUM 143 mmol/L (136-145)
[2017-03-15] MEDS ORDERED: POTASSIUM PHOS 3 MMOL/1 ML INFUSION IV STA ×2 (01:11→07:52)
[2017-03-15] MEDS ORDERED: POTASSIUM PHOSPHATE INJ 21 MMOL in SODIUM CHLORIDE 0.9% 500ML 500 ML IV SCH (01:30)
[2017-03-15 04:20] LABS: BLOOD UREA NITROGEN 6 mg/dl (7-18); CALCIUM 7.3 mg/dl (8.5-10.1); CARBON DIOXIDE 16 mmol/L (21-32); CHLORIDE 120 mmol/L (98-107); CREATININE 0.46 mg/dl (0.60-1.20); GLUCOSE 158 mg/dl (70-99); PHOSPHORUS 1.6 mg/dl (2.5-4.9); POTASSIUM 3.3 mmol/L (3.5-5.1); SODIUM 144 mmol/L (136-145)
[2017-03-15] MEDS: HEPARIN SOD 5000 UNIT/0.5 ML CARP SQ SCH (06:00)
[2017-03-15] MEDS ORDERED: POTASSIUM PHOSPHATE INJ 30 MMOL in SODIUM CHLORIDE 0.9% 500ML 500 ML IV SCH (08:00)
[2017-03-15] MEDS: INSULIN ASPART 100 UNITS/ML 3 ML PEN SC SCH ×2 (08:30→12:32)
[2017-03-15] MEDS ORDERED: INSULIN DETEMIR FLEXPEN/FLEX TOUCH 100 UNITS/ML 3ML SC ONE (08:45)
[2017-03-15 09:04] LABS: BLOOD UREA NITROGEN 4 mg/dl (7-18); BUN/CREATININE RATIO 7.6 (10-20); CALCIUM 7.6 mg/dl (8.5-10.1); CARBON DIOXIDE 18 mmol/L (21-32); CHLORIDE 118 mmol/L (98-107); CREATININE 0.46 mg/dl (0.60-1.20); GLUCOSE 146 mg/dl (70-99); POTASSIUM 3.2 mmol/L (3.5-5.1); SODIUM 144 mmol/L (136-145)
[2017-03-15 09:27] LABS: PHOSPHORUS 1.4 mg/dl (2.5-4.9)
--- NOTE | 2017-03-15 09:28 | Clinical Documentation Query ---
CLINICAL DOCUMENTATION QUERY 21 y/o F Hx DM I. Pt developed nausea and then vomiting over the past 2 days and has not been able to tolerate any PO intake. In your clinical opinion is this patient being managed for: ( ) Hypo-osmolality and hyponatremia, resolved in a diabetic patient requiring IV hydration ( ) Not Agree ( ) Other explanation of clinical findings (Please Explain) ( ) Unable to determine (Please Define) ( ) Need to Discuss The medical record reflects the following clinical findings, treatment, and risk factors. Clinical Indicators: Na 133, documented dehydration, vomiting x 2 days, decreased PO intake Treatment: IV hydration, monitor, serial lab monitoring Risk Factors: Type I DM, vomiting, DKA Please clarify and document your clinical opinion in the progress notes and discharge summary. Terms such as "probable", "suspected", "likely", "questionable", "possible", or "still to be ruled out" are acceptable. IF IN AGREEMENT, YOU MUST DOCUMENT ABOVE DIAGNOSTIC STATEMENT IN DAILY PROGRESS NOTES AND DISCHARGE SUMMARY. This document is not part of the patient's record. Thank You, Nivia Breaux RN [phone]
--- NOTE | 2017-03-15 11:01 | Critical Care Progress Note ---
Critical Care Progress Note Date of Service Mar 15, 2017. Attending Dr. Biswas Subjective Patient was seen at the bedside. No acute event overnight. She is tolerating PO well. Denies any chest pain, SOB, palpitation, abd pain, nausea, vomiting or any other symptoms. Objective Vital signs were reviewed GENERAL - Alert, well appearing, sitting in bed, no acute distress HEAD - NC/AT EYES - PERRL with EOMI bilaterally. Sclera anicteric. EARS - No deformities of external structures noted on gross examination bilaterally. MOUTH/OROPHARYNX - Without perioral cyanosis. Lips, buccal mucosa, and tongue normal and mucous membranes are moist. NECK - Supple, No lymphadenopathy, No nuchal rigidity LUNGS - Chest wall symmetric. Good air movement bilaterally. No wheezing or rhonchi was noted. CARDIAC - RRR, normal S1/S2. No murmur, rubs, or gallops appreciated. ABDOMEN - Soft, non-tender, normo-active bowel sounds, no masses, no rebound or guarding. No palpable masses, hepatosplenomegaly, or ascites noted. EXTREMITIES - No edema, No clubbing/peripheral cyanosis. Calves supple. SKIN - Warm, dry, intact. No rash NEUROLOGIC - A&Ox3. Speech normal. Sensory intact to light touch throughout. PSYCH - Mood and affect appropriate. Assessment & Plan This is a 21 y/o female with hx of type I DM on insulin presented to the ED with DKA. Patient DKA most likely 2/2 to viral illness combined with high dose of prednisone and lack of insulin. Patient is doing well and will be transitioned to her regular insulin. Her anion gap is 8 and glucose in 140s. Patient is stable to be downgrade and probably discharge today. Patient needs to follow up with PCP in 1 wk after discharge from hospital. Spoke with case management and it will be arranged. Neuro - * CAM ICU: NEGATIVE. * Acetaminophen 650mg q4h prn * Morphine 2mg q2h prn Cardiac - * EKG in ED showed NSR * no h/o cardiac problem Respiratory - * No h/o pulmonary disease. * On room air maintaining O2 * Monitor pulse oximetry. * Supplemental O2 as needed. * CXR showed hazy bibasilar opacities, left greater than right. Artifact or atelectasis is favored although consolidation could appear similar. Received bolus of Zosyn in ED. It is very less likely the X-ray finding infectious in nature. Will continue to monitor. GI - * Diet : diabetics diet RENAL/LYTES - * s/p IVF * Corrected potassium and phos - * No Chan * Full bathroom privilege ENDO - * Diabetics Ketoacidosis/hx of IDDM type I * On admission glucose was 262, CO2 <5, anion gap 24 * Anion gap closed and glucose is in 140s * Transitioned to IV insulin * Corrected potassium and phos HEME - * Stable H&H ID - * No concerns for infection at this point. Most likely had viral illness * Elevated WBC, most likely 2/2 stress, no signs of infection at this moment. Patient received bolus of Zosyn in ED. * Will monitor fever curve. * BCx and UCx NGTD LINES/IV ACCESS - * PIVs intact DVT PROPHYLAXIS - * Heparin 5000unit q8h * * Resident Physician Supervision Note: I was present with Dr. Elizabeth Cuevas during the history and exam. I discussed the case with the resident and agree with the findings and plan as documented in the note. 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 She stopped taking insulin as she was not able to eat. She was found to have DKA. Patient stated that she developed right ear fullness couple of days ago. She was prescribed prednisone by urgent care center. She took prednisone 60 and 50 mg prior to admission. Patient was diagnosed with diabetes ketoacidosis likely due to lack of insulin and steroid consumption. On physical examination patient looks dehydrated, complained of some right ear fullness without any abnormalities on tympanitic membrane examination. Patient was volume resuscitated, treated with insulin drip over the night. Severe hypokalemia and hypophosphatemia was replaced. Anion gap was completely closed. Patient is able to tolerate diet well without nausea or vomiting. Insulin drip was discontinued, subcutaneous insulin home regimen was restarted. Patient was recommended to stop taking steroids, no treatment with antibiotic is recommended. Will discharge patient later today. T < 30 min. Consults & Procedures Consultants: glycemic consult Procedures: none Data Medications: Current Inpatient Medications Medications (Trade) Dose Ordered Sig/Sharron Route Start Time Stop Time Status Last Admin Dose Admin Insulin Human Regular 250 units/ Sodium Chloride 252.5 ml @ 0 mls/hr TODAY@1220 IV 03/14/17 12:20 03/15/17 11:29 03/14/17 13:23 2.4 MLS/HR Glucose (Glucose 40% Gel) UD PRN PO 03/14/17 12:30 04/13/17 12:29 Glucose (Glucose Chew Tab) 1 tabs UD PRN PO 03/14/17 12:30 04/13/17 12:29 Dextrose (Dextrose 50% 50ML Syringe) 50 ml UD PRN IV 03/14/17 12:30 04/13/17 12:29 Glucagon (Glucagon Inj) 1 mg UD PRN SQ 03/14/17 12:30 04/13/17 12:29 Insulin Aspart (novoLOG ASPART) SLIDING SCALE HS SC 03/14/17 17:15 04/13/17 17:14 03/15/17 08:30 3 UNITS Miscellaneous Information (Consult Glycemic Management Pharmacy) 1 ea UD PRN N/A 03/14/17 13:45 04/13/17 13:44 Heparin Sodium (Porcine) (Heparin Sq 5000 Unit/0.5ml) 5,000 unit Q8 SQ 03/14/17 22:00 04/13/17 21:59 03/14/17 21:43 5,000 UNIT Acetaminophen (Tylenol Tab) 650 mg Q4H PRN PO 03/14/17 13:45 04/13/17 13:44 Zolpidem Tartrate (Ambien Tab) 5 mg HSZ PRN PO 03/14/17 13:45 04/13/17 13:44 Morphine Sulfate (MoRPHine SULFATE INJ) 2 mg Q2H PRN IV 03/14/17 13:45 03/28/17 13:44 Potassium Chloride/Dextrose/ Sod Cl 1,000 ml @ 200 mls/hr Q5H IV 03/14/17 17:45 04/13/17 17:44 03/15/17 05:18 200 MLS/HR Insulin Human Regular 250 units/ Sodium Chloride 252.5 ml @ 0 mls/hr DAILY@1130 IV 03/15/17 11:30 04/14/17 11:29 Potassium Phosphate 30 mmol/ Sodium Chloride 510 ml @ 100 mls/hr TODAY@0800 IV 03/15/17 08:00 03/15/17 13:05 03/15/17 08:25 100 MLS/HR Vital Signs: Date Time Temp Pulse Resp B/P (MAP) Pulse Ox O2 Delivery O2 Flow Rate FiO2 03/15/17 08:15 98 Room Air 03/15/17 08:15 36.3 83 16 101/67 (78) 98 Room Air 03/15/17 06:00 77 14 Room Air 03/15/17 04:00 98 Room Air 03/15/17 04:00 36.5 78 16 106/51 (69) 98 Room Air 03/15/17 02:00 82 14 Room Air 03/15/17 00:01 36.8 93 14 112/62 (79) 98 Room Air 03/14/17 23:59 98 Room Air 03/14/17 22:00 87 16 112/57 (75) 100 Room Air 03/14/17 20:00 37.0 100 16 114/61 (78) 100 Room Air 03/14/17 20:00 100 Room Air 03/14/17 18:00 94 18 106/58 (74) 99 Room Air 03/14/17 17:00 87 16 121/78 (92) 100 Nasal Cannula 2.0 03/14/17 15:40 36.1 94 18 114/74 95 Room Air 03/14/17 14:28 76 16 118/68 100 03/14/17 13:27 81 18 118/68 97 Room Air 03/14/17 11:40 81 18 123/77 97 Room Air 03/14/17 10:33 91 24 144/77 100 03/14/17 09:47 36.5 104 28 144/90 100 Room Air Laboratory Results: Last 24 Hours Test 03/14/17 09:20 03/14/17 09:35 03/14/17 10:58 03/14/17 11:10 White Blood Count 14.75 K/uL Red Blood Count 5.54 M/uL Hemoglobin 17.1 g/dL Hematocrit 49.8 % Mean Corpuscular Volume 89.9 fL Mean Corpuscular Hemoglobin 30.9 pg Mean Corpuscular Hemoglobin Concent 34.3 g/dl Platelet Count 321 K/uL Mean Platelet Volume 11.2 fL Neutrophils (%) (Auto) 81.8 % Lymphocytes (%) (Auto) 14.6 % Monocytes (%) (Auto) 2.6 % Eosinophils (%) (Auto) 0.0 % Basophils (%) (Auto) 0.3 % Neutrophils # (Auto) 12.06 K/uL Lymphocytes # (Auto) 2.15 K/uL Monocytes # (Auto) 0.38 K/uL Eosinophils # (Auto) 0.00 K/uL Basophils # (Auto) 0.05 K/uL RDW Standard Deviation 42.8 fL RDW Coefficient of Variation 13.0 % Immature Granulocyte % (Auto) 0.7 % Immature Granulocyte # (Auto) 0.11 K/uL Urine Color YELLOW Urine Appearance CLEAR Urine pH 5.0 Urine Specific [place] 1.034 Urine Protein 2+ Urine Glucose (UA) 3+ Urine Ketones 4+ Urine Occult Blood TRACE Urine Nitrite NEG Urine Bilirubin NEG Urine Urobilinogen NEG Urine Leukocyte Esterase NEG Urine WBC (Auto) 1-5 /hpf Urine RBC (Auto) 0-4 /hpf Urine Hyaline Casts (Auto) 5-10 /lpf Urine Epithelial Cells (Auto) >30 /lpf Urine Bacteria (Auto) NEG Bedside Glucose 291 mg/dl Sodium Level 134 mmol/L Potassium Level 3.5 mmol/L Chloride Level 109 mmol/L Carbon Dioxide Level < 5 mmol/L Anion Gap 24.0 mmol/L Blood Urea Nitrogen 9 mg/dl Creatinine 0.75 mg/dl Estimated GFR () 133.0 Estimated GFR (Non- 114.7 BUN/Creatinine Ratio 12.4 Random Glucose 262 mg/dl Calcium Level 8.0 mg/dl Total Bilirubin 0.3 mg/dl Direct Bilirubin < 0.1 mg/dl Aspartate Amino Transf (AST/SGOT) 10 U/L Alanine Aminotransferase (ALT/SGPT) 14 U/L Alkaline Phosphatase 95 U/L Total Protein 7.8 gm/dl Albumin 3.5 gm/dl Lipase 92 U/L Human Chorionic Gonadotropin, Qual NEG Test 03/14/17 11:33 03/14/17 12:11 03/14/17 12:30 03/14/17 13:05 Influenza Type A Antigen Neg for Influ A Influenza Type B Antigen Neg for Influ B Bedside Glucose 193 mg/dl Venous Blood pH 7.09 Venous Blood Partial Pressure CO2 24 mmHg Venous Blood Partial Pressure O2 32 mmHg Venous Blood HCO3 7 mmol/L Venous Blood Oxygen Saturation 61.3 % Venous Blood Base Excess -21.0 mEq/L Bedside Lactic Acid Venous 1.61 mmol/L Test 03/14/17 14:13 10/4/17 14:52 03/14/17 16:01 03/14/17 16:09 Bedside Glucose 199 mg/dl 226 mg/dl 208 mg/dl Prothrombin Time 9.4 SECONDS Prothromb Time International Ratio 0.9 Venous Blood pH 7.21 Sodium Level 136 mmol/L Potassium Level 3.3 mmol/L Chloride Level 109 mmol/L Carbon Dioxide Level 9 mmol/L Anion Gap 18.0 mmol/L Blood Urea Nitrogen 8 mg/dl Creatinine 0.85 mg/dl Est Creatinine Clear Calc Drug Dose 95.0 ml/min Estimated GFR () 114.3 Estimated GFR (Non- 98.6 BUN/Creatinine Ratio 9.7 Random Glucose 238 mg/dl Calcium Level 7.5 mg/dl Phosphorus Level 0.7 mg/dl Magnesium Level 1.9 mg/dl Test 03/14/17 16:21 03/14/17 17:00 03/14/17 19:06 03/14/17 20:15 Blood Gas Sample Site R Radial Bedside Blood Gas pH (LAB) 7.15 Bedside Blood Gas pCO2 (LAB) 19 mmHg Bedside Blood Gas pO2 (LAB) 113 mmHg Bedside Blood Gas HCO3 (LAB) 7 meq/L Bedside Blood Gas Total CO2 7 mEq/l Bedside Blood Gas Base Excess (LAB) -22.0 meq/L Bedside Blood Gas O2 Saturation 97.0 % True Test Pass Oxygen Delivery Device Room Air Bedside Glucose 205 mg/dl 246 mg/dl Venous Blood pH 7.30 Sodium Level 138 mmol/L Potassium Level 3.5 mmol/L Chloride Level 114 mmol/L Carbon Dioxide Level 14 mmol/L Anion Gap 10.0 mmol/L Blood Urea Nitrogen 6 mg/dl Creatinine 0.80 mg/dl Est Creatinine Clear Calc Drug Dose 101.0 ml/min Estimated GFR () 123.0 Estimated GFR (Non- 106.1 BUN/Creatinine Ratio 7.9 Random Glucose 333 mg/dl Calcium Level 7.5 mg/dl Phosphorus Level 1.2 mg/dl Magnesium Level 1.7 mg/dl Beta-Hydroxybutyric Acid 10.25 mg/dL Test 03/14/17 20:58 03/14/17 22:07 03/14/17 23:05 03/15/17 00:04 Bedside Glucose 309 mg/dl 262 mg/dl 203 mg/dl Venous Blood pH 7.31 Sodium Level 143 mmol/L Potassium Level 3.6 mmol/L Chloride Level 116 mmol/L Carbon Dioxide Level 16 mmol/L Anion Gap 11.0 mmol/L Blood Urea Nitrogen 7 mg/dl Creatinine 0.57 mg/dl Est Creatinine Clear Calc Drug Dose 141.7 ml/min Estimated GFR () > 150.0 Estimated GFR (Non- 133.5 BUN/Creatinine Ratio 11.9 Random Glucose 221 mg/dl Calcium Level 7.4 mg/dl Phosphorus Level 1.7 mg/dl Magnesium Level 2.3 mg/dl Test 03/15/17 00:08 03/15/17 00:52 03/15/17 02:09 03/15/17 03:06 Bedside Glucose 195 mg/dl 204 mg/dl 178 mg/dl 162 mg/dl Test 03/15/17 03:52 03/15/17 03:56 03/15/17 08:23 03/15/17 09:03 Venous Blood pH 7.31 7.34 Sodium Level 144 mmol/L 144 mmol/L Potassium Level 3.3 mmol/L 3.2 mmol/L Chloride Level 120 mmol/L 118 mmol/L Carbon Dioxide Level 16 mmol/L 18 mmol/L Anion Gap 8.0 mmol/L 8.0 mmol/L Blood Urea Nitrogen 6 mg/dl 4 mg/dl Creatinine 0.46 mg/dl 0.46 mg/dl Est Creatinine Clear Calc Drug Dose 175.6 ml/min 177.1 ml/min Estimated GFR () > 150.0 > 150.0 Estimated GFR (Non- 143.2 143.2 BUN/Creatinine Ratio 13.0 7.6 Random Glucose 158 mg/dl 146 mg/dl Calcium Level 7.3 mg/dl 7.6 mg/dl Phosphorus Level 1.6 mg/dl Magnesium Level 2.0 mg/dl 2.0 mg/dl Bedside Glucose 144 mg/dl 143 mg/dl
[2017-03-15] MEDS ORDERED: INSULIN REGULAR 250 UNITS in SODIUM CHLORIDE 0.9% 250ML 250 ML IV SCH (11:30)
[2017-03-15 12:35] LABS: BLOOD UREA NITROGEN 4 mg/dl (7-18); BUN/CREATININE RATIO 9.5 (10-20); CALCIUM 7.4 mg/dl (8.5-10.1); CARBON DIOXIDE 19 mmol/L (21-32); CHLORIDE 115 mmol/L (98-107); CREATININE 0.42 mg/dl (0.60-1.20); GLUCOSE 140 mg/dl (70-99); MAGNESIUM 1.8 mg/dl (1.8-2.4); POTASSIUM 3.1 mmol/L (3.5-5.1); SODIUM 142 mmol/L (136-145)
[2017-03-15 12:40] LABS: PHOSPHORUS 2.3 mg/dl (2.5-4.9)
--- NOTE | 2017-03-15 13:44 | Discharge Instructions ---
Discharge Instructions Date of Service Mar 15, 2017. Admission Reason for Admission: Dka, Type 1 Discharge Discharge Diagnosis / Problem: DKA Discharge Goals Goal(s): Decrease discomfort, Learn about illness, Diagnostic testing, Therapeutic intervention, Prevent Disease Progression Activity Recommendations Activity Limitations: resume your previous activity . Instructions / Follow-Up Instructions / Follow-Up You were admitted to [facility] due to hyperglycemia. You were treated with IV insulin, IV fluids, and electrolyte replacements. At discharge, please resume your regular insulin regimen. It is recommended you follow-up with an Operations And Maintenance Supervisor. Discontinue tobacco use. FOLLOW-UPS: Please follow-up with Dr. Grove on Sunday, March 19 at 4:10 PM. Please follow-up/keep all of your subspecialty appointments Current Hospital Diet Patient's current hospital diet: Diabetes Type 1 Diet Discharge Diet Recommended Diet: Diabetes Type 1 Diet Pending Studies Studies pending at discharge: yes List of pending studies: Blood cultures Medical Emergencies . Who to Call and When: Medical Emergencies: If at any time you feel your situation is an emergency, please call 911 immediately. . Non-Emergent Contact Non-Emergency issues call your: Primary Care Provider Call Non-Emergent contact if: you have a fever, your pain is not controlled, your pain is worsening, your pain is unusual for you, your pain is concerning you, you have any medication questions . . "Provider Documentation" section prepared by Rosalia Borjas. . VTE Core Measure Inpt VTE Proph given/why not?: Unfractionated heparin SQ
--- NOTE | 2017-03-15 13:49 | Discharge Summary ---
Discharge Summary Date of Service Mar 15, 2017. (Rosalia Borjas PA-C) Discharge Summary Admission Date: Mar 14, 2017 at 13:41 Discharge Date: Mar 15, 2017 Discharge Disposition: Home Principal Diagnosis: DKA Problems/Secondary Diagnoses: T1DM tobacco abuse Procedures: CHEST ONE VIEW PORTABLE CLINICAL HISTORY: Chest pain. Flu-like symptoms. COMPARISON STUDY: No previous studies for comparison. FINDINGS: Lung volumes are normal. No pneumothorax or pleural effusion is present. There are hazy bibasilar opacities, left greater than right. Cardiac size is normal. Mediastinal contours are normal. There is no evidence of pulmonary edema. IMPRESSION: Hazy bibasilar opacities, left greater than right. Artifact or atelectasis is favored although consolidation could appear similar. Electronically signed by: Stephane Seo M.D. 03/14/2017 10:46 AM Dictated Date/Time: 03/14/2017 10:45 AM The status of this report is Signed. Draft = Not yet reviewed or approved by Radiologist. Signed = Reviewed and approved by Radiologist. Consultations: Sonography Technician (Rosalia Borjas PA-C) Medication Reconciliation Continued Medications: Insulin Aspart (Novolog Flexpen) 100 Units/Ml Inj Unknown Dose PT does sliding scale according to what she eats. Insulin Detemir (Levemir) 100 Units/Ml Inj 27 UNITS SC HS Discharge Exam Review of Systems: Constitutional: No fever, No chills, No sweats, No weakness, No fatigue ENT: No hearing loss Respiratory: No cough, No sputum, No wheezing, No shortness of breath, No hemoptysis Cardiovascular: No chest pain, No edema, No palpitations Abdomen: No pain, No nausea, No vomiting, No diarrhea, No constipation Musculoskeletal: No joint pain, No muscle pain, No swelling, No calf pain Genitourinary - Female: No dysuria, No hematuria Neurologic: No weakness, No numbness/tingling Psychiatric: No depression symptoms, No anxiety Endocrine: No fatigue Hematologic / Lymphatic: No abnormal bleeding/bruising Integumentary: No rash, No itch, No new/changing skin lesions Physical Exam: General Appearance: no apparent distress Eyes: PERRL ENT: hearing grossly normal Neck: supple Respiratory/Chest: lungs clear, no respiratory distress, no accessory muscle use Cardiovascular: regular rate, rhythm Abdomen / GI: normal bowel sounds, non tender, soft Extremities: no calf tenderness, no pedal edema Neurologic/Psychiatric: alert, normal mood/affect, oriented x 3 Skin: normal color, warm/dry, no rash (Rosalia Borjas, JOANN) Hospital Course Admission H&P: 21 y/o F Hx DM I. Pt developed nausea and then vomiting over the past 2 days and has not been able to tolerate any PO intake. She did not take her insulin for 2 days therefore. She presented to the hospital anxious and hyperventilating. She denies SOB, CP or significant abdominal pain. She did have some lower back pain. Initial labs confirmed severe DKA. Physical Exam Vital Signs Date Time Temp Pulse Resp B/P (MAP) Pulse Ox O2 Delivery O2 Flow Rate FiO2 03/14/17 13:27 81 18 118/68 97 Room Air 03/14/17 11:40 81 18 123/77 97 Room Air 03/14/17 10:33 91 24 144/77 100 03/14/17 09:47 36.5 104 28 144/90 100 Room Air General Appearance: + pertinent finding (Average weight young female - mild tachypnea - no distress at time of admission) ENT: normal ENT inspection, hearing grossly normal, TMs normal, pharynx normal Neck: supple, no JVD Respiratory/Chest: chest non-tender, lungs clear, normal breath sounds Cardiovascular: regular rate, rhythm, no edema, no gallop Abdomen/GI: normal bowel sounds, non tender, soft Back: normal inspection, no CVA tenderness, no muscle spasm, normal range of motion Extremities/Musculoskelatal: normal inspection, no calf tenderness, normal capillary refill, no pedal edema, normal range of motion Neurologic/Psych: tax manager cpa II-XII nml as tested, no motor/sensory deficits, alert, normal mood/affect, normal reflexes, oriented x 3 Skin: normal color, warm/dry, no rash Hospital Course: T1DM w/ DKA secondary to stopping insulin x2 days from N/V and Prednisone taper given by [facility]: - Admit to ICU- no acute events overnight - EKG w/out any acute changes - Leukocytosis, likely secondary to stress response and/or Prednisone taper - MRSA negative - DKA protocol- IV insulin drip, IVF resuscitation, followed VBG, followed routine labs, monitored electrolytes and replaced PRN - Pharmacy consulted for glycemia control - CXR- ?atelectasis vs infectious process- no s/s of infection at this time- no antibiotics indicated - UCx negative, BCx pending - Influenza negative - Recommend outpatient f/u w/ Supervisor Lace Tearing Tobacco Abuse: Smoking cessation counselling DVT prophylaxis: Heparin TID Code Status: LEVEL I, FULL Dispo: Discharge to home Total Time Spent: Greater than 30 minutes This includes examination of the patient, discharge planning, medication reconciliation, and communication with other providers. (Rosalia Borjas PA-C) I agree with PA assessment and plan and have seen and examined pt myself VSS Labs reviewed Low phos and K+ Pt in DKA with AG Metabolic Acidosis Treated with insulin drip Pt reports poor compliance at home with insulin and accuchecks Recommend endocrinology consult on discharge (Beka Pérez, D.O.) Discharge Instructions Please refer to the electronic Patient Visit Report (Discharge Instructions) for additional information. (Rosalia Borjas PA-C) Follow-Up Please follow-up with Dr. Grove on Sunday, March 19 at 4:10PM Please follow-up/keep all of your subspecialty appointments (Rosalia Borjas, PA-C) Additional Copies To Eliceo Grove MD
--- NOTE | 2017-03-15 14:33 | Medical Student: [facility] ---
Med Student History & Physical Date & Time of Service: Mar 15, 2017 at 11:17 Chief Complaint: Dka, Type 1 Primary Care Physician: No Doctor, Assigned History of Present Illness Source: patient This is 21 year-old female with history of DM type 1 presented 03/14 with chest tightness, N/V, and back pain for the past 2 days. On admission, her glucose is 291, Bicarb is 5 and AG is 24. Pt was admitted for DKA treatment. Of note, she has missed taking insulin for the past 2 days. Could not tolerate anything. Patient used Insulin Levemir and Insulin Novolog. She admits that she is not very compliant with her medications. She only checks her glucose level about 2x a day. Glucose level usually runs about 200-300. Today, pt is sitting comfortably in bed, felt better. Mild back pain, no chest tightness, N/V, no excessive drinking or urination. Tolerate diabetic diet. 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) Immunizations History of Influenza Vaccine: Unknown History of Tetanus Vaccine?: Unknown History of Pneumococcal: Unknown History of Hepatitis B Vaccine: Unknown Allergies Coded Allergies: Vancomycin (Unverified Allergy, Severe, HIVES, 03/14/17) Medications Insulin Aspart (Novolog Flexpen), Unknown Dose Insulin Detemir (Levemir), 27 UNITS SC HS Review of Systems Constitutional: No fever, No chills, No sweats Eyes: No worsening of vision ENT: No hearing loss Respiratory: No cough, No sputum, No shortness of breath Cardiovascular: No chest pain Abdomen: No nausea, No vomiting, No diarrhea, No constipation Musculoskeletal: + problem reported (back pain) Genitourinary - Female: No dysuria, No urinary frequency Endocrine: No excessive thirst Physical Exam Vital Signs (24 Hours) Date Time Temp Pulse Resp B/P (MAP) Pulse Ox O2 Delivery O2 Flow Rate FiO2 03/15/17 08:15 98 Room Air 03/15/17 08:15 36.3 83 16 101/67 (78) 98 Room Air 03/15/17 08:00 Nasal Cannula 03/15/17 06:00 77 14 Room Air 03/15/17 04:00 98 Room Air 03/15/17 04:00 36.5 78 16 106/51 (69) 98 Room Air 03/15/17 02:00 82 14 Room Air 03/15/17 00:01 36.8 93 14 112/62 (79) 98 Room Air 03/14/17 23:59 98 Room Air 03/14/17 22:00 87 16 112/57 (75) 100 Room Air 03/14/17 20:00 37.0 100 16 114/61 (78) 100 Room Air 03/14/17 20:00 100 Room Air 03/14/17 18:00 94 18 106/58 (74) 99 Room Air 03/14/17 17:00 87 16 121/78 (92) 100 Nasal Cannula 2.0 03/14/17 15:40 36.1 94 18 114/74 95 Room Air 03/14/17 14:28 76 16 118/68 100 03/14/17 13:27 81 18 118/68 97 Room Air 03/14/17 11:40 81 18 123/77 97 Room Air General Appearance: WD/WN, + mild distress Head: atraumatic Eyes: normal inspection ENT: hearing grossly normal Respiratory/Chest: lungs clear, normal breath sounds, no respiratory distress Cardiovascular: regular rate, rhythm, no murmur Abdomen/GI: normal bowel sounds, non tender, soft Extremities/Musculoskelatal: normal inspection, no pedal edema Neurologic/Psych: alert, normal mood/affect, oriented x 3 Skin: normal color Diagnostics Laboratory Results Results Past 24 Hours Test 03/14/17 11:33 03/14/17 12:11 03/14/17 12:30 03/14/17 13:05 Range/Units Influenza Type A Antigen Neg for Influ A NEG Influenza Type B Antigen Neg for Influ B NEG Bedside Glucose 193 70-90 mg/dl Venous Blood pH 7.09 7.36-7.41 Venous Blood Partial Pressure CO2 24 38.0-50.0 mmHg Venous Blood Partial Pressure O2 32 mmHg Venous Blood HCO3 7 mmol/L Venous Blood Oxygen Saturation 61.3 % Venous Blood Base Excess -21.0 mEq/L Bedside Lactic Acid Venous 1.61 0.90-1.70 mmol/L Test 03/14/17 14:13 03/14/17 14:52 03/14/17 16:01 03/14/17 16:09 Range/Units Bedside Glucose 199 226 208 70-90 mg/dl Prothrombin Time 9.4 9.0-12.0 SECONDS Prothromb Time International Ratio 0.9 0.9-1.1 Venous Blood pH 7.21 7.36-7.41 Sodium Level 136 136-145 mmol/L Potassium Level 3.3 3.5-5.1 mmol/L Chloride Level 109 98-107 mmol/L Carbon Dioxide Level 9 21-32 mmol/L Anion Gap 18.0 3-11 mmol/L Blood Urea Nitrogen 8 7-18 mg/dl Creatinine 0.85 0.60-1.20 mg/dl Est Creatinine Clear Calc Drug Dose 95.0 ml/min Estimated GFR () 114.3 Estimated GFR (Non- 98.6 BUN/Creatinine Ratio 9.7 10-20 Random Glucose 238 70-99 mg/dl Calcium Level 7.5 8.5-10.1 mg/dl Phosphorus Level 0.7 2.5-4.9 mg/dl Magnesium Level 1.9 1.8-2.4 mg/dl Test 03/14/17 16:21 03/14/17 17:00 03/14/17 19:06 03/14/17 20:15 Range/Units Blood Gas Sample Site R Radial Bedside Blood Gas pH (LAB) 7.15 7.35-7.45 Bedside Blood Gas pCO2 (LAB) 19 35-46 mmHg Bedside Blood Gas pO2 (LAB) 113 80-95 mmHg Bedside Blood Gas HCO3 (LAB) 7 19-24 meq/L Bedside Blood Gas Total CO2 7 24-31 mEq/l Bedside Blood Gas Base Excess (LAB) -22.0 -9-1.8 meq/L Bedside Blood Gas O2 Saturation 97.0 90-95 % True Test Pass Oxygen Delivery Device Room Air Bedside Glucose 205 246 70-90 mg/dl Venous Blood pH 7.30 7.36-7.41 Sodium Level 138 136-145 mmol/L Potassium Level 3.5 3.5-5.1 mmol/L Chloride Level 114 98-107 mmol/L Carbon Dioxide Level 14 21-32 mmol/L Anion Gap 10.0 3-11 mmol/L Blood Urea Nitrogen 6 7-18 mg/dl Creatinine 0.80 0.60-1.20 mg/dl Est Creatinine Clear Calc Drug Dose 101.0 ml/min Estimated GFR () 123.0 Estimated GFR (Non- 106.1 BUN/Creatinine Ratio 7.9 10-20 Random Glucose 333 70-99 mg/dl Calcium Level 7.5 8.5-10.1 mg/dl Phosphorus Level 1.2 2.5-4.9 mg/dl Magnesium Level 1.7 1.8-2.4 mg/dl Beta-Hydroxybutyric Acid 10.25 0.2-2.81 mg/dL Test 03/14/17 20:58 03/14/17 22:07 03/14/17 23:05 03/15/17 00:04 Range/Units Bedside Glucose 309 262 203 70-90 mg/dl Venous Blood pH 7.31 7.36-7.41 Sodium Level 143 136-145 mmol/L Potassium Level 3.6 3.5-5.1 mmol/L Chloride Level 116 98-107 mmol/L Carbon Dioxide Level 16 21-32 mmol/L Anion Gap 11.0 3-11 mmol/L Blood Urea Nitrogen 7 7-18 mg/dl Creatinine 0.57 0.60-1.20 mg/dl Est Creatinine Clear Calc Drug Dose 141.7 ml/min Estimated GFR () > 150.0 Estimated GFR (Non- 133.5 BUN/Creatinine Ratio 11.9 10-20 Random Glucose 221 70-99 mg/dl Calcium Level 7.4 8.5-10.1 mg/dl Phosphorus Level 1.7 2.5-4.9 mg/dl Magnesium Level 2.3 1.8-2.4 mg/dl Test 03/15/17 00:08 03/15/17 00:52 03/15/17 02:09 03/15/17 03:06 Range/Units Bedside Glucose 195 204 178 162 70-90 mg/dl Test 03/15/17 03:52 03/15/17 03:56 03/15/17 08:23 03/15/17 09:03 Range/Units Venous Blood pH 7.31 7.34 7.36-7.41 Sodium Level 144 144 136-145 mmol/L Potassium Level 3.3 3.2 3.5-5.1 mmol/L Chloride Level 120 118 98-107 mmol/L Carbon Dioxide Level 16 18 21-32 mmol/L Anion Gap 8.0 8.0 3-11 mmol/L Blood Urea Nitrogen 6 4 7-18 mg/dl Creatinine 0.46 0.46 0.60-1.20 mg/dl Est Creatinine Clear Calc Drug Dose 175.6 177.1 ml/min Estimated GFR () > 150.0 > 150.0 Estimated GFR (Non- 143.2 143.2 BUN/Creatinine Ratio 13.0 7.6 10-20 Random Glucose 158 146 70-99 mg/dl Calcium Level 7.3 7.6 8.5-10.1 mg/dl Phosphorus Level 1.6 1.4 2.5-4.9 mg/dl Magnesium Level 2.0 2.0 1.8-2.4 mg/dl Bedside Glucose 144 143 70-90 mg/dl Microbiology Results 03/14/17 Blood Culture, Received Pending 03/14/17 Blood Culture, Received Pending 03/14/17 MRSA DNA Surveillance Screen - Final, Complete Specimen Negative for MRSA by DNA Probe CXR normal (Hazy bibasilar opacities, left greater than right, artifact vs atelectasis) EKG normal EKG with normal sinus rhythm Normal EKG Impression Assessment and Plan This is 21 year-old female with history of DM type 1 presented 03/14 with chest tightness, N/V, and back pain for the past 2 days. On admission, her glucose is 291, Bicarb is 5 and AG is 24. Pt was admitted for DKA treatment. Of note, she has missed taking insulin for the past 2 days. DKA/Anion gap metabolic acidosis/Type 1 Diabetes Upon admission, pt glucose is 291, bicarb is 5, AG is 24 and 4+ urine ketones, suggesting DKA. Blood gas also shows pH 7.1, pCO2 19, pO2 113, HCO3 7, pointing to compensated metabolic acidosis 2/2 DKA. Today, pt felt better, tolerate diet, glucose level is in the 140s range, bicarbs is slowly going up 19, AG is normalized at 8.0. EKG shows normal sinus rhythm - Insulin drip 03/14, today transition to home med with insulin Levemir and Insulin novolog. - Potassium replacement (K today is 3.2 this morning) - KCl/Dextrose/Sodium Chloride 1000ml @ 200 mls/hr q5hr, KCl PO 60mg - Phosphorus replacement (P today is 2.3) - Potassium phosphate 30 mmol 510ml@ 100 mls/hr - IVF Patient can be discharged today. Patient will follow with product marketing director (cyanide case hardener will help make appointment) about medication adjustment. Pt wants to switch to pump. DVT prophylaxis - Heparin refused by patient 03/15. Pt received heparin 03/14 Dispo - home. Level of Care Critical Care Advanced Directives Existing Living Will: No Existing Power of Clerical Warehouse Worker: No DVT Prophylaxis Prophylaxis Contraindication: Pt.refusal of treatment Note Total Time: Critical Care 30 - 74 minutes
== END 2017-03-15 14:50 | disposition home or self-care (01) | DRG 639 ==
LOC: C.EDB 09:18 → C.MSICU 13:41 → ENRESERV 14:01
PROVIDERS: ADMIT Internal Medicine; ATTEND Hospitalist
DX: E10.10 Type 1 diabetes mellitus with ketoacidosis without coma (principal); Z91.14 Patient's other noncompliance with medication regimen; E86.0 Dehydration; F17.210 Nicotine dependence, cigarettes, uncomplicated; B34.9 Viral infection, unspecified

== ENCOUNTER 2017-03-21 11:51 | Emergency (ER) | payer BC ==
[~2017-03-21] VITALS: Ht 160 cm; Wt 62.0 kg
[~2017-03-21 11:51] MED LIST: LVMI SC; NVLGI/PEN
[2017-03-21 11:56] VITALS: Ht 160 cm; Wt 62.0 kg
[2017-03-21] MEDS ORDERED: SODIUM CHLORIDE 0.9% 1000ML 1,000 ML IV STA (12:03)
[2017-03-21 12:42] LABS: BASO % 0.6 %; BASO ABS # 0.05 K/uL (0-0.2); COMPLETE YES; EOS % 1.6 %; HEMATOCRIT 45.1 % (37-47); IG% 0.2 %; LYMPH % 29.1 %; LYMPH ABS # 2.52 K/uL (1.2-3.4); MEAN CELL VOLUME 87.6 fL (80-100); MEAN CORPUSCULAR HEMOGLOBIN 29.9 pg (25-34); MEAN CORPUSCULAR HGB CONC 34.1 g/dl (32-36); MEAN PLATELET VOLUME 10.2 fL (7.4-10.4); MONO % 6.1 %; NEUT % 62.4 %; PLATELET COUNT 261 K/uL (130-400); RED BLOOD COUNT 5.15 M/uL (4.2-5.4); WHITE BLOOD COUNT 8.65 K/uL (4.8-10.8)
--- NOTE | 2017-03-21 12:42 | EMERGENCY ROOM VISIT NOTE ---
History Report prepared by [place]: Toshia Chisholm Under the Supervision of: Dr. Sergio Finley M.D. 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 The patient has IDDM. Two weeks ago she went to [facility] for right ear pain. She was prescribed oral steroids for her symptoms. She was taking this medication and did not realize that it was affecting her BSG. She then developed nausea and vomiting. She was admitted to the hospital last week for 24 hours for DKA, and she was discharged on 03/15/17. The patient had a follow-up appointment yesterday with her PCP and was scheduled for blood work this morning. She had her blood work drawn today and was told that her BSG was in the 500s and she should come to the ED for further evaluation. The patient states that she feels fine and has no complaints at this time. She denies fevers, nausea, vomiting, abdominal pain, and urinary symptoms. She did not check her BSG this morning before going to her appointment. She did take her regular insulin dose. The patient has been eating and drinking normally. 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 A total of 10 systems reviewed and were otherwise negative. Past Medical & Surgical Medical Problems: (1) DKA, type 1 (2) Type 1 diabetes mellitus Family History No pertinent history stated. 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 HEENT: No acute trauma, normocephalic atraumatic, mucous membranes moist, no nasal congestion, no scleral icterus. TMs clear bilaterally. NECK: No stridor, no adenopathy, no meningismus, trachea is midline. LUNGS: Clear to auscultation bilaterally, no wheeze, no rhonchi, breath sounds equal. HEART: Without murmurs gallops or rubs, regular rate and rhythm. ABDOMEN: Soft, nontender, bowel sounds positive, no hernias, no peritonitis. EXTREMITIES: No cyanosis or edema, full range of motion of all the joints without pain or difficulty, no signs for acute trauma. NEUROLOGIC: Oriented x 3, no acute motor or sensory deficits, no focal weakness. SKIN: No rash, no jaundice, no diaphoresis. Medical Decision & Procedures ER Provider Diagnostic Interpretation: Urine dip shows glucose and ketones, no signs of infection. Laboratory Results 03/21/17 12:18 Red Blood Count 5.15, Mean Corpuscular Volume 87.6, Mean Corpuscular Hemoglobin 29.9, Mean Corpuscular Hemoglobin Concent 34.1, Mean Platelet Volume 10.2, Neutrophils (%) (Auto) 62.4, Lymphocytes (%) (Auto) 29.1, Monocytes (%) (Auto) 6.1, Eosinophils (%) (Auto) 1.6, Basophils (%) (Auto) 0.6, Neutrophils # (Auto) 5.39, Lymphocytes # (Auto) 2.52, Monocytes # (Auto) 0.53, Eosinophils # (Auto) 0.14, Basophils # (Auto) 0.05 03/21/17 12:18 Test 03/21/17 12:18 03/21/17 12:33 03/21/17 13:29 03/21/17 13:40 White Blood Count 8.65 K/uL (4.8-10.8) Red Blood Count 5.15 M/uL (4.2-5.4) Hemoglobin 15.4 g/dL (12.0-16.0) Hematocrit 45.1 % (37-47) Mean Corpuscular Volume 87.6 fL (80-100) Mean Corpuscular Hemoglobin 29.9 pg (25-34) Mean Corpuscular Hemoglobin Concent 34.1 g/dl (32-36) Platelet Count 261 K/uL (130-400) Mean Platelet Volume 10.2 fL (7.4-10.4) Neutrophils (%) (Auto) 62.4 % Lymphocytes (%) (Auto) 29.1 % Monocytes (%) (Auto) 6.1 % Eosinophils (%) (Auto) 1.6 % Basophils (%) (Auto) 0.6 % Neutrophils # (Auto) 5.39 K/uL (1.4-6.5) Lymphocytes # (Auto) 2.52 K/uL (1.2-3.4) Monocytes # (Auto) 0.53 K/uL (0.11-0.59) Eosinophils # (Auto) 0.14 K/uL (0-0.5) Basophils # (Auto) 0.05 K/uL (0-0.2) RDW Standard Deviation 40.1 fL (36.4-46.3) RDW Coefficient of Variation 12.6 % (11.5-14.5) Immature Granulocyte % (Auto) 0.2 % Immature Granulocyte # (Auto) 0.02 K/uL (0.00-0.02) Anion Gap 16.0 mmol/L (3-11) Est Creatinine Clear Calc Drug Dose 75.0 ml/min Estimated GFR () 95.1 Estimated GFR (Non- 82.0 BUN/Creatinine Ratio 14.6 (10-20) Calcium Level 9.7 mg/dl (8.5-10.1) Total Bilirubin 0.4 mg/dl (0.2-1) Aspartate Amino Transf (AST/SGOT) U/L (15-37) Alanine Aminotransferase (ALT/SGPT) 20 U/L (12-78) Alkaline Phosphatase 107 U/L (45-117) Total Protein 8.3 gm/dl (6.4-8.2) Albumin 3.8 gm/dl (3.4-5.0) Globulin 4.5 gm/dl (2.5-4.0) Albumin/Globulin Ratio 0.8 (0.9-2) Human Chorionic Gonadotropin, Qual NEG (NEG) Venous Blood pH 7.36 (7.36-7.41) Venous Blood Partial Pressure CO2 42 mmHg (38.0-50.0) Venous Blood Partial Pressure O2 38 mmHg Venous Blood HCO3 23 mmol/L Venous Blood Oxygen Saturation 67.1 % Venous Blood Base Excess -2.1 mEq/L Laboratory results reviewed by me. Medications Administered Medications (Trade) Dose Ordered Sig/Sharron Route Start Time Stop Time Status Last Admin Dose Admin Sodium Chloride 1,000 ml @ 999 mls/hr Q1H1M STAT IV 03/21/17 12:03 03/21/17 13:03 DC 03/21/17 12:26 999 MLS/HR Insulin Human Regular (novoLIN-R U-100 PER UNIT) 8 units NOW STAT IV 03/21/17 12:43 03/21/17 12:45 DC 03/21/17 13:00 8 UNITS ED Course 1159: The patient was evaluated in room A2. A complete history and physical exam was performed. 1203: NSS 1000 ml @ 999 mls/hr IV 1243: Insulin Human Regular 8 units IV 1338: I reassessed the patient at this time. She is feeling better and resting comfortably. Her BSG is 204. I discussed the results and treatment plan with the patient. I answered all pertaining questions that she had. She expressed understanding and verbalized agreement. The patient will be discharged home. Medical Decision Differential diagnoses includes hyperglycemia, dehydration, infection, missed insulin dosing, DKA. There is no leukocytosis or concerning anemia. Renal panel testing shows hyperglycemia with a sugar over 400. No kidney failure. No hepatitis. Urine dip does not show infection, glucose and ketones were seen. Venous blood gas does not show acidosis. testing was negative. The patient received IV saline, IV insulin. A recheck of her blood sugar shows a BSG of 204, things are markedly improved. The patient has no complaints and feels well. Her sugar has been reduced to a reasonable level. I do think she can be discharged. She is not in DKA. Patient was encouraged to return for worsening symptoms, she will keep a very close watch on her blood sugar. Medication Reconcilliation Current Medication List: was personally reviewed by me Blood Pressure Screening Patient's blood pressure: Normal blood pressure Impression Primary Impression: Hyperglycemia Scribe Attestation The scribe's documentation has been prepared under my direction and personally reviewed by me in its entirety. I confirm that the note above accurately reflects all work, treatment, procedures, and medical decision making performed by me. Departure Information Dispostion Home / Self-Care Referrals No Doctor, Assigned (PCP) Forms HOME CARE DOCUMENTATION FORM, IMPORTANT VISIT INFORMATION, WORK / SCHOOL INSTRUCTIONS Patient Instructions My Asthmatx Additional Instructions keep a watch on your blood sugar stay well hydrated return with any concerns or worsening symptoms
[2017-03-21] MEDS ORDERED: NovoLIN-R INSULIN PER UNIT CHARGE IV STA (12:43)
[2017-03-21 12:49] LABS: VEN BLD GAS O2 SATURATION 67.1 %; VEN BLOOD GAS BASE EXCESS -2.1 mEq/L
[2017-03-21 12:56] LABS: PREG INTERNAL NEGATIVE QC NEG CLEAR BACKGROUND; PREG INTERNAL POSITIVE QC POS CONTROL LINE
[2017-03-21 13:15] LABS: ALB/GLOB RATIO 0.8 (0.9-2); ALKALINE PHOSPHATASE 107 U/L (45-117); ALT/SGPT 20 U/L (12-78); BLOOD UREA NITROGEN 15 mg/dl (7-18); BUN/CREATININE RATIO 14.6 (10-20); CALCIUM 9.7 mg/dl (8.5-10.1); CARBON DIOXIDE 22 mmol/L (21-32); CHLORIDE 94 mmol/L (98-107); CREATININE 0.99 mg/dl (0.60-1.20); GLUCOSE 448 mg/dl (70-99); SODIUM 132 mmol/L (136-145)
[2017-03-21 13:52] LABS: MANUAL MICROSCOPIC REQUIRED? NO; URINE APPEARANCE CLEAR (CLEAR); URINE BILIRUBIN NEG (NEG); URINE COLOR YELLOW; URINE NITRITE NEG (NEG); URINE PH 5.5 (4.5-7.5); UROBILINOGEN NEG (NEG)
[2017-03-21 13:55] VITALS: BP 120/68; PULSE 85; TEMP 36.8; O2SAT 97
[2017-03-21 14:13] LABS: REVIEW REQ? NO
== END 2017-03-21 13:57 | disposition home or self-care (01) ==
LOC: C.EDB 11:52 → C.EDA 13:57
DX: E10.65 Type 1 diabetes mellitus with hyperglycemia (principal); F17.210 Nicotine dependence, cigarettes, uncomplicated; Z79.4 Long term (current) use of insulin

== ENCOUNTER 2017-03-26 12:38 | Observation (INO) | payer BC ==
[~2017-03-26] VITALS: Ht 160 cm; Wt 63.9 kg
[2017-03-26 12:44] VITALS: Ht 160 cm; Wt 63.9 kg
[2017-03-26] MEDS ORDERED: ACETAMINOPHEN 325 MG TAB PO STA (13:01)
[2017-03-26] MEDS ORDERED: SODIUM CHLORIDE 0.9% 1000ML 1,000 ML IV STA (13:01)
[2017-03-26 13:48] LABS: URINE APPEARANCE CLEAR (CLEAR); URINE BILIRUBIN NEG (NEG); URINE COLOR YELLOW; URINE EPITHELIAL CELL AUTO >30 /lpf (0-5); URINE NITRITE NEG (NEG); URINE SPECIFIC GRAVITY 1.026 (1.000-1.030); UROBILINOGEN NEG (NEG); ZZUR CULT IF INDIC CLEAN CATCH NO
[2017-03-26 13:55] LABS: MANUAL MICROSCOPIC REQUIRED? NO; REVIEW REQ? YES
--- NOTE | 2017-03-26 14:00 | DIAGNOSTIC IMAGING REPORT ---
CHEST 2 VIEWS ROUTINE CLINICAL HISTORY: Flulike symptoms. Ammonia. COMPARISON STUDY: 03/14/2017 FINDINGS: The cardiac and mediastinal contours are normal. There is no evidence of focal pulmonary consolidation. There is no evidence of failure. No pleural effusions are visualized.[ Slight increased density in the right middle lobe or lingular region on the lateral view, likely represents a summation. No corresponding abnormalities visualized in the PA film. IMPRESSION: No active disease in the chest. Electronically signed by: Kwabena Villatoro M.D. 03/26/2017 1:58 PM Dictated Date/Time: 03/26/2017 1:57 PM
[2017-03-26] MEDS ORDERED: BCPILLS PO (14:05)
[2017-03-26 14:09] LABS: INR 0.9 (0.9-1.1); PARTIAL THROMBOPLASTIN RATIO 0.9; PROTHROMBIN TIME (PATIENT) 9.4 SECONDS (9.0-12.0)
[2017-03-26 14:31] LABS: BUN/CREATININE RATIO 24.2 (10-20); CALCIUM 9.4 mg/dl (8.5-10.1); CREATININE 0.67 mg/dl (0.60-1.20); POTASSIUM 3.6 mmol/L (3.5-5.1)
[2017-03-26 14:34] LABS: ALB/GLOB RATIO 0.9 (0.9-2)
[2017-03-26 14:37] LABS: HEMATOCRIT 40.1 % (37-47); MEAN CELL VOLUME 87.4 fL (80-100); MEAN CORPUSCULAR HEMOGLOBIN 30.9 pg (25-34); MEAN CORPUSCULAR HGB CONC 35.4 g/dl (32-36); MEAN PLATELET VOLUME 10.5 fL (7.4-10.4); PLATELET COUNT 241 K/uL (130-400); RED BLOOD COUNT 4.59 M/uL (4.2-5.4); WHITE BLOOD COUNT 20.76 K/uL (4.8-10.8)
[2017-03-26] MEDS ORDERED: OPTIRAY 320 IV PRN (14:45)
[2017-03-26 14:46] LABS: BASO % 0.2 %; BASO ABS # 0.05 K/uL (0-0.2); COMPLETE YES; EOS % 0.7 %; IG% 0.4 %; LYMPH % 4.8 %; LYMPH ABS # 0.99 K/uL (1.2-3.4); MONO % 5.8 %; NEUT % 88.1 %
--- NOTE | 2017-03-26 15:40 | DIAGNOSTIC IMAGING REPORT ---
CT SCAN OF THE PARANASAL SINUSES CLINICAL HISTORY: Dyspnea. Dizziness. COMPARISON STUDY: No priors. TECHNIQUE: High-resolution CT scan of the paranasal sinuses is performed. Images are reviewed in the axial, sagittal, and coronal planes. IV contrast was not administered for this examination. A dose lowering technique was utilized adhering to the principles of ALARA. CT DOSE: 763.06 mGy.cm FINDINGS: Maxillary antra: Clear bilaterally. Anterior ethmoid sinuses: Clear. Posterior ethmoid sinuses: Trace mucosal thickening is seen bilaterally. Sphenoid sinuses: Trace mucosal thickening seen bilaterally. Frontal sinuses: Clear. Ostiomeatal complexes: Patent bilaterally. Frontoethmoidal and sphenoethmoidal recesses: Patent bilaterally. Carotid arteries: The carotid arteries are protuberant but covered a septal attachment is seen on the right. Ethmoid roofs: There is asymmetric elevation of the left ethmoid roof as compared to the right. Nasal turbinates: Normal in appearance. Nasal septum: There is minimal leftward deviation of the bony nasal septum. Optic nerves: Covered. Orbits: The bony orbits are intact. Orbital contents are normal in appearance. Calvarium: The imaged calvarium is normal in appearance Mastoid air cells: There are small mastoid effusions. Brain parenchyma: Partially visualized brain parenchyma is within normal limits. Soft tissues: Tongue and nasal piercings are noted. Calcified sialoliths are noted in the right parotid gland. IMPRESSION: 1. No significant paranasal sinus disease. See above. 2. Small mastoid effusions. 3. Right parotid sialolithiasis. Electronically signed by: Sergio Freeman M.D. 03/26/2017 3:39 PM Dictated Date/Time: 03/26/2017 3:36 PM
--- NOTE | 2017-03-26 15:40 | DIAGNOSTIC IMAGING REPORT ---
CT ANGIOGRAPHY OF THE CHEST, PULMONARY EMBOLUS PROTOCOL CLINICAL HISTORY: Chest pain, trouble breathing and dizziness. COMPARISON STUDY: Chest radiograph March 14, 2017 and March 26, 2017. TECHNIQUE: Following IV administration of 93 mL of Optiray-320, helical axial images of the chest were obtained utilizing the pulmonary embolus protocol. Maximal intensity projections and sagittal and coronal reformats were viewed on an independent 3D workstation. IV contrast was administered without complication. A dose lowering technique was utilized adhering to the principles of ALARA. FINDINGS: No pulmonary emboli are identified. Size of the heart is normal. There is no evidence of thoracic aortic dissection. No pericardial effusion is present. There are no enlarged thoracic lymph nodes. There is no pneumothorax. Central airways are patent. Ground glass opacities suggest atelectasis. There is no consolidation to suggest pneumonia. Central airways are patent. Bony thorax and upper abdomen are unremarkable. IMPRESSION: No pulmonary emboli identified. Electronically signed by: Stephane Seo M.D. 03/26/2017 3:39 PM Dictated Date/Time: 03/26/2017 3:32 PM
[2017-03-26 16:25] LABS: LYME DISEASE AB IGG NEG (NEG); LYME DISEASE AB IGM NEG (NEG)
[2017-03-26] MEDS ORDERED: IBUPROFEN 200 MG TAB PO STA (16:34)
--- NOTE | 2017-03-26 16:45 | History and Physical ---
History & Physical Date & Time of Service: Mar 26, 2017 at 16:44 Chief Complaint: Chest Pain, Trouble Breathing, Dizziness Primary Care Physician: No Doctor, Assigned History of Present Illness Source: patient This is a 21 yo F with PMHx of DM type I on insulin, who presents to the ED with new onset of fever, chills, and left breast pain x 1 day. She reports going to classes this morning but that she was feeling ill, but without a specific symptom. When leaving class she felt lightheaded and dizzy upon standing, but this quickly resolved. She developed teeth chattering chills once was back in her apartment and took ibuprofen 400mg prior to coming to the ER. Her pain is located specifically in the left breast, and up into her left armpit where she is unable to lay on her left side without severe pain. She has bilateral nipple piecings which were done over 1 year ago, she denies recent changes in rings, or recent irritation or infection around the left ring specifically. She admits her left breast is more swollen than normal. The patients last menstrual cycle was over 1 month ago, but is irregular. She uses OCP for control methods. She reports some stuffy nose, but no congestion or rhinorrhea. She denies sore throat, cough or chest congestion. She also reports no sick contacts in the past week. WBC is 21K, with initial Tmax= 38.3. Imaging including CTA chest, chest x ray and Sinus CT were reviewed and are negative for acute findings. Discussion was held with radiology regarding left breast and there is not an apparent abscess or mass on imaging per report, also without axillary lymphadenopathy. Past Medical/Surgical History Medical Problems: (1) Type 1 diabetes mellitus Status: Chronic Family History Patient reports no known family medical history. Social History Smoking Status: Current Every Day Smoker Smokeless Tobacco Use: No Alcohol Use: none Drug Use: none Marital Status: single Housing status: lives with roommate Occupational Status: [employer] student Immunizations History of Influenza Vaccine: Unknown History of Tetanus Vaccine?: Unknown History of Pneumococcal: Unknown History of Hepatitis B Vaccine: Unknown Allergies Coded Allergies: Vancomycin (Unverified Allergy, Severe, HIVES, 03/21/17) Home Medications Scheduled Control Pills ( Control Pills), 1 TAB PO DAILY Insulin Detemir (Levemir), 27 UNITS SC HS Miscellaneous Medications Insulin Aspart (Novolog Flexpen), Unknown Dose Review of Systems Constitutional: + fever, + chills, + fatigue, No sweats Eyes: No redness, No diplopia ENT: No nasal symptoms, No sore throat, No tinnitus, No dental problems, No trouble swallowing Respiratory: No cough, No sputum Cardiovascular: + chest pain (Left breast per HPI), No edema, No palpitations Abdomen: No pain, No nausea, No vomiting, No diarrhea, No constipation Musculoskeletal: No joint pain, No swelling Genitourinary - Female: No dysuria Neurologic: No weakness, No numbness/tingling Endocrine: No fatigue Integumentary: No rash, No itch Physical Exam Vital Signs Date Time Temp Pulse Resp B/P (MAP) Pulse Ox O2 Delivery O2 Flow Rate FiO2 03/26/17 14:57 37.2 104 18 126/61 95 03/26/17 12:44 38.3 110 20 114/76 97 Room Air General Appearance: WD/WN, no apparent distress Head: normocephalic, atraumatic Eyes: PERRL, EOMI ENT: hearing grossly normal, pharynx normal Neck: supple, no adenopathy, thyroid normal Respiratory/Chest: lungs clear, no respiratory distress, no accessory muscle use, + pertinent finding (+ tenderness over the left breast + mottled red rash developing over the left breast surrounding the areola. + nipple peircing bilaterally but appear without surrounding erythema, edema or signs of infection. + tenderness with palpation into the left axillary region. No axillary adenopathy but + pain with palpation.) Cardiovascular: regular rate, rhythm, no JVD, no murmur Abdomen/GI: normal bowel sounds, non tender, soft Back: normal inspection Extremities/Musculoskelatal: normal inspection, no calf tenderness, no pedal edema Neurologic/Psych: alert, normal mood/affect, oriented x 3 Skin: normal color, warm/dry Diagnostics Laboratory Results Results Past 24 Hours Test 03/26/17 13:07 03/26/17 13:12 03/26/17 13:15 03/26/17 13:37 Range/Units Urine Color YELLOW Urine Appearance CLEAR CLEAR Urine pH 5.0 4.5-7.5 Urine Specific [place] 1.026 1.000-1.030 Urine Protein 3+ NEG Urine Glucose (UA) 3+ NEG Urine Ketones NEG NEG Urine Occult Blood NEG NEG Urine Nitrite NEG NEG Urine Bilirubin NEG NEG Urine Urobilinogen NEG NEG Urine Leukocyte Esterase NEG NEG Urine WBC (Auto) 1-5 0-5 /hpf Urine RBC (Auto) 0-4 0-4 /hpf Urine Hyaline Casts (Auto) 5-10 0-5 /lpf Urine Epithelial Cells (Auto) >30 0-5 /lpf Urine Bacteria (Auto) NEG NEG Urine Renal Epithelial Cells 0-5 0-5 /lpf Urine Test NEG NEG Influenza Type A Antigen Neg for Influ A NEG Influenza Type B Antigen Neg for Influ B NEG White Blood Count 20.76 4.8-10.8 K/uL Red Blood Count 4.59 4.2-5.4 M/uL Hemoglobin 14.2 12.0-16.0 g/dL Hematocrit 40.1 37-47 % Mean Corpuscular Volume 87.4 80-100 fL Mean Corpuscular Hemoglobin 30.9 25-34 pg Mean Corpuscular Hemoglobin Concent 35.4 32-36 g/dl Platelet Count 241 130-400 K/uL Mean Platelet Volume 10.5 7.4-10.4 fL Neutrophils (%) (Auto) 88.1 % Lymphocytes (%) (Auto) 4.8 % Monocytes (%) (Auto) 5.8 % Eosinophils (%) (Auto) 0.7 % Basophils (%) (Auto) 0.2 % Neutrophils # (Auto) 18.29 1.4-6.5 K/uL Lymphocytes # (Auto) 0.99 1.2-3.4 K/uL Monocytes # (Auto) 1.21 0.11-0.59 K/uL Eosinophils # (Auto) 0.14 0-0.5 K/uL Basophils # (Auto) 0.05 0-0.2 K/uL RDW Standard Deviation 42.8 36.4-46.3 fL RDW Coefficient of Variation 13.4 11.5-14.5 % Immature Granulocyte % (Auto) 0.4 % Immature Granulocyte # (Auto) 0.08 0.00-0.02 K/uL Prothrombin Time 9.4 9.0-12.0 SECONDS Prothromb Time International Ratio 0.9 0.9-1.1 Activated Partial Thromboplast Time 23.7 21.0-31.0 SECONDS Partial Thromboplastin Ratio 0.9 Sodium Level 135 136-145 mmol/L Potassium Level 3.6 3.5-5.1 mmol/L Chloride Level 103 98-107 mmol/L Carbon Dioxide Level 22 21-32 mmol/L Anion Gap 10.0 3-11 mmol/L Blood Urea Nitrogen 16 7-18 mg/dl Creatinine 0.67 0.60-1.20 mg/dl Est Creatinine Clear Calc Drug Dose 120.5 ml/min Estimated GFR () 146.7 Estimated GFR (Non- 126.5 BUN/Creatinine Ratio 24.2 10-20 Random Glucose 145 70-99 mg/dl Calcium Level 9.4 8.5-10.1 mg/dl Total Bilirubin 0.3 0.2-1 mg/dl Aspartate Amino Transf (AST/SGOT) 4 15-37 U/L Alanine Aminotransferase (ALT/SGPT) 15 12-78 U/L Alkaline Phosphatase 79 45-117 U/L Total Protein 7.2 6.4-8.2 gm/dl Albumin 3.4 3.4-5.0 gm/dl Globulin 3.8 2.5-4.0 gm/dl Albumin/Globulin Ratio 0.9 0.9-2 Lyme Disease IgG Antibody NEG NEG Lyme Disease IgM Antibody NEG NEG Monoscreen NEG NEG Bedside Lactic Acid Venous 2.84 0.90-1.70 mmol/L Microbiology Results 03/26/17 Blood Culture, Received Pending 03/26/17 Blood Culture, Received Pending Diagnostic Radiology CT ANGIOGRAPHY OF THE CHEST, PULMONARY EMBOLUS PROTOCOL CLINICAL HISTORY: Chest pain, trouble breathing and dizziness. COMPARISON STUDY: Chest radiograph March 14, 2017 and March 26, 2017. TECHNIQUE: Following IV administration of 93 mL of Optiray-320, helical axial images of the chest were obtained utilizing the pulmonary embolus protocol. Maximal intensity projections and sagittal and coronal reformats were viewed on an independent 3D workstation. IV contrast was administered without complication. A dose lowering technique was utilized adhering to the principles of ALARA. FINDINGS: No pulmonary emboli are identified. Size of the heart is normal. There is no evidence of thoracic aortic dissection. No pericardial effusion is present. There are no enlarged thoracic lymph nodes. There is no pneumothorax. Central airways are patent. Ground glass opacities suggest atelectasis. There is no consolidation to suggest pneumonia. Central airways are patent. Bony thorax and upper abdomen are unremarkable. IMPRESSION: No pulmonary emboli identified. Electronically signed by: Stephane Seo M.D. 03/26/2017 3:39 PM Dictated Date/Time: 03/26/2017 3:32 PM The status of this report is Signed. CHEST 2 VIEWS ROUTINE CLINICAL HISTORY: Flulike symptoms. Ammonia. COMPARISON STUDY: 03/14/2017 FINDINGS: The cardiac and mediastinal contours are normal. There is no evidence of focal pulmonary consolidation. There is no evidence of failure. No pleural effusions are visualized.[ Slight increased density in the right middle lobe or lingular region on the lateral view, likely represents a summation. No corresponding abnormalities visualized in the PA film. IMPRESSION: No active disease in the chest. Electronically signed by: Kwabena Villatoro M.D. 03/26/2017 1:58 PM Dictated Date/Time: 03/26/2017 1:57 PM The status of this report is Signed. CT SCAN OF THE PARANASAL SINUSES CLINICAL HISTORY: Dyspnea. Dizziness. COMPARISON STUDY: No priors. TECHNIQUE: High-resolution CT scan of the paranasal sinuses is performed. Images are reviewed in the axial, sagittal, and coronal planes. IV contrast was not administered for this examination. A dose lowering technique was utilized adhering to the principles of ALARA. CT DOSE: 763.06 mGy.cm FINDINGS: Maxillary antra: Clear bilaterally. Anterior ethmoid sinuses: Clear. Posterior ethmoid sinuses: Trace mucosal thickening is seen bilaterally. Sphenoid sinuses: Trace mucosal thickening seen bilaterally. Frontal sinuses: Clear. Ostiomeatal complexes: Patent bilaterally. Frontoethmoidal and sphenoethmoidal recesses: Patent bilaterally. Carotid arteries: The carotid arteries are protuberant but covered a septal attachment is seen on the right. Ethmoid roofs: There is asymmetric elevation of the left ethmoid roof as compared to the right. Nasal turbinates: Normal in appearance. Nasal septum: There is minimal leftward deviation of the bony nasal septum. Optic nerves: Covered. Orbits: The bony orbits are intact. Orbital contents are normal in appearance. Calvarium: The imaged calvarium is normal in appearance Mastoid air cells: There are small mastoid effusions. Brain parenchyma: Partially visualized brain parenchyma is within normal limits. Soft tissues: Tongue and nasal piercings are noted. Calcified sialoliths are noted in the right parotid gland. IMPRESSION: 1. No significant paranasal sinus disease. See above. 2. Small mastoid effusions. 3. Right parotid sialolithiasis. Electronically signed by: Sergio Freeman M.D. 03/26/2017 3:39 PM Dictated Date/Time: 03/26/2017 3:36 PM The status of this report is Signed. Impression Assessment and Plan This is a 21 yo F with PMHx of DM type I on insulin, who presents to the ED with new onset of fever, chills, and left breast pain x 1 day. L breast infection - Admit to med/surg for observation - WBC 21 K with left shift, Tmax= 38.3 at time of admission; pt had taken ibuprofen 400mg prior to coming to the ED. - Imaging reviewed with the radiologist regarding development of breast rash - no axillary involvement and no abscess seen on imaging - if worsens could consider ultrasound for more specific and smaller abscess evaluation - at this time does not appear to be any - Treat supportively with tylenol, ibuprofen, cool compresses - Will start on clindamycin for breast tissue infection - Outline of breast erythema/rash has been marked. DM - Continue Levemir 27 U HS and ISS with accuchecks achs - Pt reports diet has been limited today so depending on dinner intake, may need to reduce levemir slightly. DVT ppx: SCDs, ambulatory CODE STATUS: FULL CODE Disposition: From home, discharge likely tomorrow. PA Physician Supervision Note: I interviewed and examined the patient. Discussed with Madelaine Murrieta PAC and agree with findings and plan as documented in the note. Any exceptions or clarifications are listed here: None This patient is a diabetic who presents with a tender left breast elevated white count and fever. Her fever was even after taking ibuprofen at home. Her workup in the urine been unrevealing but later she developed a blotchy red rash to her left breast and has persistent tenderness in that area. He'll anything new in her routine has been a recent return to the gym one day ago however her breasts was not sore after the gym but was sore this morning upon awakening. The patient has CT scan of her chest did not show any abnormal fluid collections within her breast she is not in any breast discharge or drainage and there is no induration and firmness or skin changes Vital signs show temperature 38 3 Physical exam of the presence of my physician's interior design assistant shows a blotchy red breast centrally around the area left and tapering up towards the axilla the axilla does not have any induration or lymphadenopathy. Possibly left breast cellulitis the patient will be observed clindamycin will be begun the area of redness was demarcated with a marker and reevaluation morning Regarding her diabetes she'll continue her Levemir and insulin sliding scale she does have a history of DKA Documented By: Reynaldo Cochran Level of Care Med/Surg Advanced Directives Existing Advance Directive: No Existing Living Will: No Existing Power of Outside Sales Account Manager: No Existing Health Care Proxy: No Resuscitation Status FULL RESUSCITATION VTE Prophylaxis Risk Level: Low Given or contraindicated: SCD's
[2017-03-26] MEDS ORDERED: GLUCOSE 40% GEL 15 GM TUBE PO PRN (17:15)
[2017-03-26] MEDS ORDERED: ACETAMINOPHEN 325 MG TAB PO PRN (17:15)
[2017-03-26] MEDS ORDERED: DEXTROSE 50% 50 ML SYR IV PRN (17:15)
[2017-03-26] MEDS ORDERED: GLUCOSE 10 TABS/TUBE PO PRN (17:15)
[2017-03-26] MEDS ORDERED: GLUCAGON FOR INJ 1 MG VIAL SQ PRN (17:15)
[2017-03-26 18:13] VITALS: O2SAT 97
[2017-03-26 19:15] VITALS: BP 104/63; PULSE 94; TEMP 36.8; O2SAT 97
--- NOTE | 2017-03-26 19:26 | EMERGENCY ROOM VISIT NOTE ---
History Report prepared by [place]: Raúl Koo Under the Supervision of: Dr. Reynaldo Dan M.D. First contact with patient: 12:49 Chief Complaint: RESPIRATORY PROBLEMS Stated Complaint: CHEST PAIN, TROUBLE BREATHING, DIZZINESS History of Present Illness The patient is a 21 year old female who presents to the Emergency Room with complaints of left sided chest pain that began this morning. She rates her pain an 8/10 in severity. She has a history of diabetes and asthma. She notes that she has not needed to use her Nebulizer or inhaler for 5 years and that she is on the Flex Pen trying to switch to an insulin pump. She woke up this morning experiencing what she describes as a constant sharp pain in her left upper chest and entire left breast. Her pain is exacerbated with touch, lying on her left side, and coughing. She denies any redness or swelling to her breast. She is also having shortness of breath with a cough as well. She denies any sputum production. She has been having rhinorrhea and congestion for the past 3 weeks and states that she is having difficulty hearing with her right ear. She is told she had some inflammation to the right ureter but no effusion. She denies having any fevers at home. Per triage, the patient is febrile. She denies any pain or swelling to her legs. She has been on control pills for about 3 years. Source of History: patient Onset: this morning Position: chest (left) Symptom Intensity: 8/10 Quality: sharp Timing: constant Modifying Factors (Worsening): rest (lying on the left), other (Coughing and touch) Associated Symptoms: + fevers, + cough Note: She is having rhinorrhea and congestion. She denies any leg pain or swelling. She also denies any redness or swelling to her left breast as well. Review of Systems See HPI for pertinent positives & negatives. A total of 10 systems reviewed and were otherwise negative. Past Medical & Surgical Medical Problems: (1) Breast pain, left (2) DKA, type 1 (3) Type 1 diabetes mellitus Family History Patient reports no known family medical history. Social History Smoking Status: Current Every Day Smoker Drug Use: none Marital Status: single Housing Status: lives with roommate Occupation Status: [employer] student Current/Historical Medications Scheduled Control Pills ( Control Pills), 1 TAB PO DAILY Insulin Detemir (Levemir), 27 UNITS SC HS Miscellaneous Medications Insulin Aspart (Novolog Flexpen), Unknown Dose Allergies Coded Allergies: Vancomycin (Unverified Allergy, Severe, HIVES, 03/21/17) Physical Exam Vital Signs Date Time Temp Pulse Resp B/P (MAP) Pulse Ox O2 Delivery O2 Flow Rate FiO2 03/26/17 17:10 37.2 98 16 129/60 96 03/26/17 14:57 37.2 104 18 126/61 95 03/26/17 12:44 38.3 110 20 114/76 97 Room Air Physical Exam Constitutional: Vital signs reviewed. Eyes: Pupils are equal round reactive to light. Conjunctiva are noninjected. ENT: Pharynx is clear without erythema or exudate. Mucous membranes are moist. TM's are clear bilaterally. No maxillary sinus tenderness. Multiple piercings to the nose and bilateral ears without signs of infection. Neck supple without meningeal signs. Respiratory: Clear to auscultation bilaterally. Breath sounds are equal bilaterally. Cardiovascular: Regular rate and rhythm. No rubs or gallops. GI: Soft, nondistended and nontender. Bowel sounds are present. Musculoskeletal: Left upper chest wall tenderness to palpation without erythema or cellulitis. No tenderness, significant erythema, or edema to the left breast. Left nipple piercing present without evidence of infection. No peripheral edema. No lower extremity tenderness. Integumentary: No cyanosis. Neurological: The patient is awake and alert. No focal deficits. Psychiatric: Normal affect. Medical Decision & Procedures ER Provider Diagnostic Interpretation: Radiology results as stated below per my review and the radiologist's interpretation: CHEST 2 VIEWS ROUTINE CLINICAL HISTORY: Flulike symptoms. Ammonia. COMPARISON STUDY: 03/14/2017 FINDINGS: The cardiac and mediastinal contours are normal. There is no evidence of focal pulmonary consolidation. There is no evidence of failure. No pleural effusions are visualized.[ Slight increased density in the right middle lobe or lingular region on the lateral view, likely represents a summation. No corresponding abnormalities visualized in the PA film. IMPRESSION: No active disease in the chest. Electronically signed by: Kwabena Villatoro M.D. 03/26/2017 1:58 PM Dictated Date/Time: 03/26/2017 1:[address] ANGIOGRAPHY OF THE CHEST, PULMONARY EMBOLUS PROTOCOL CLINICAL HISTORY: Chest pain, trouble breathing and dizziness. COMPARISON STUDY: Chest radiograph March 14, 2017 and March 26, 2017. TECHNIQUE: Following IV administration of 93 mL of Optiray-320, helical axial images of the chest were obtained utilizing the pulmonary embolus protocol. Maximal intensity projections and sagittal and coronal reformats were viewed on an independent 3D workstation. IV contrast was administered without complication. A dose lowering technique was utilized adhering to the principles of ALARA. FINDINGS: No pulmonary emboli are identified. Size of the heart is normal. There is no evidence of thoracic aortic dissection. No pericardial effusion is present. There are no enlarged thoracic lymph nodes. There is no pneumothorax. Central airways are patent. Ground glass opacities suggest atelectasis. There is no consolidation to suggest pneumonia. Central airways are patent. Bony thorax and upper abdomen are unremarkable. IMPRESSION: No pulmonary emboli identified. Electronically signed by: Stephane Seo M.D. 03/26/2017 3:39 PM Dictated Date/Time: 03/26/2017 3:[address] SCAN OF THE PARANASAL SINUSES CLINICAL HISTORY: Dyspnea. Dizziness. COMPARISON STUDY: No priors. TECHNIQUE: High-resolution CT scan of the paranasal sinuses is performed. Images are reviewed in the axial, sagittal, and coronal planes. IV contrast was not administered for this examination. A dose lowering technique was utilized adhering to the principles of ALARA. CT DOSE: 763.06 mGy.cm FINDINGS: Maxillary antra: Clear bilaterally. Anterior ethmoid sinuses: Clear. Posterior ethmoid sinuses: Trace mucosal thickening is seen bilaterally. Sphenoid sinuses: Trace mucosal thickening seen bilaterally. Frontal sinuses: Clear. Ostiomeatal complexes: Patent bilaterally. Frontoethmoidal and sphenoethmoidal recesses: Patent bilaterally. Carotid arteries: The carotid arteries are protuberant but covered a septal attachment is seen on the right. Ethmoid roofs: There is asymmetric elevation of the left ethmoid roof as compared to the right. Nasal turbinates: Normal in appearance. Nasal septum: There is minimal leftward deviation of the bony nasal septum. Optic nerves: Covered. Orbits: The bony orbits are intact. Orbital contents are normal in appearance. Calvarium: The imaged calvarium is normal in appearance Mastoid air cells: There are small mastoid effusions. Brain parenchyma: Partially visualized brain parenchyma is within normal limits. Soft tissues: Tongue and nasal piercings are noted. Calcified sialoliths are noted in the right parotid gland. IMPRESSION: 1. No significant paranasal sinus disease. See above. 2. Small mastoid effusions. 3. Right parotid sialolithiasis. Electronically signed by: Sergio Freeman M.D. 03/26/2017 3:39 PM Dictated Date/Time: 03/26/2017 3:36 PM Laboratory Results 03/26/17 13:15 Red Blood Count 4.59, Mean Corpuscular Volume 87.4, Mean Corpuscular Hemoglobin 30.9, Mean Corpuscular Hemoglobin Concent 35.4, Mean Platelet Volume 10.5, Neutrophils (%) (Auto) 88.1, Lymphocytes (%) (Auto) 4.8, Monocytes (%) (Auto) 5.8, Eosinophils (%) (Auto) 0.7, Basophils (%) (Auto) 0.2, Neutrophils # (Auto) 18.29, Lymphocytes # (Auto) 0.99, Monocytes # (Auto) 1.21, Eosinophils # (Auto) 0.14, Basophils # (Auto) 0.05 03/26/17 13:15 Test 03/26/17 13:07 03/26/17 13:12 03/26/17 13:15 03/26/17 13:37 Urine Color YELLOW Urine Appearance CLEAR (CLEAR) Urine pH 5.0 (4.5-7.5) Urine Specific [place] 1.026 (1.000-1.030) Urine Protein 3+ (NEG) Urine Glucose (UA) 3+ (NEG) Urine Ketones NEG (NEG) Urine Occult Blood NEG (NEG) Urine Nitrite NEG (NEG) Urine Bilirubin NEG (NEG) Urine Urobilinogen NEG (NEG) Urine Leukocyte Esterase NEG (NEG) Urine WBC (Auto) 1-5 /hpf (0-5) Urine RBC (Auto) 0-4 /hpf (0-4) Urine Hyaline Casts (Auto) 5-10 /lpf (0-5) Urine Epithelial Cells (Auto) >30 /lpf (0-5) Urine Bacteria (Auto) NEG (NEG) Urine Renal Epithelial Cells 0-5 /lpf (0-5) Urine Test NEG (NEG) Influenza Type A Antigen Neg for Influ A (NEG) Influenza Type B Antigen Neg for Influ B (NEG) White Blood Count 20.76 K/uL (4.8-10.8) Red Blood Count 4.59 M/uL (4.2-5.4) Hemoglobin 14.2 g/dL (12.0-16.0) Hematocrit 40.1 % (37-47) Mean Corpuscular Volume 87.4 fL (80-100) Mean Corpuscular Hemoglobin 30.9 pg (25-34) Mean Corpuscular Hemoglobin Concent 35.4 g/dl (32-36) Platelet Count 241 K/uL (130-400) Mean Platelet Volume 10.5 fL (7.4-10.4) Neutrophils (%) (Auto) 88.1 % Lymphocytes (%) (Auto) 4.8 % Monocytes (%) (Auto) 5.8 % Eosinophils (%) (Auto) 0.7 % Basophils (%) (Auto) 0.2 % Neutrophils # (Auto) 18.29 K/uL (1.4-6.5) Lymphocytes # (Auto) 0.99 K/uL (1.2-3.4) Monocytes # (Auto) 1.21 K/uL (0.11-0.59) Eosinophils # (Auto) 0.14 K/uL (0-0.5) Basophils # (Auto) 0.05 K/uL (0-0.2) RDW Standard Deviation 42.8 fL (36.4-46.3) RDW Coefficient of Variation 13.4 % (11.5-14.5) Immature Granulocyte % (Auto) 0.4 % Immature Granulocyte # (Auto) 0.08 K/uL (0.00-0.02) Prothrombin Time 9.4 SECONDS (9.0-12.0) Prothromb Time International Ratio 0.9 (0.9-1.1) Activated Partial Thromboplast Time 23.7 SECONDS (21.0-31.0) Partial Thromboplastin Ratio 0.9 Anion Gap 10.0 mmol/L (3-11) Est Creatinine Clear Calc Drug Dose 120.5 ml/min Estimated GFR () 146.7 Estimated GFR (Non- 126.5 BUN/Creatinine Ratio 24.2 (10-20) Calcium Level 9.4 mg/dl (8.5-10.1) Total Bilirubin 0.3 mg/dl (0.2-1) Aspartate Amino Transf (AST/SGOT) 4 U/L (15-37) Alanine Aminotransferase (ALT/SGPT) 15 U/L (12-78) Alkaline Phosphatase 79 U/L (45-117) Total Protein 7.2 gm/dl (6.4-8.2) Albumin 3.4 gm/dl (3.4-5.0) Globulin 3.8 gm/dl (2.5-4.0) Albumin/Globulin Ratio 0.9 (0.9-2) Lyme Disease IgG Antibody NEG (NEG) Lyme Disease IgM Antibody NEG (NEG) Monoscreen NEG (NEG) Bedside Lactic Acid Venous 2.84 mmol/L (0.90-1.70) Laboratory results as reviewed by me. Medications Administered Medications (Trade) Dose Ordered Sig/Sharron Route Start Time Stop Time Status Last Admin Dose Admin Sodium Chloride 1,000 ml @ 999 mls/hr Q1H1M STAT IV 03/26/17 13:01 03/26/17 14:01 DC 03/26/17 13:30 999 MLS/HR Acetaminophen (Tylenol Tab) 650 mg NOW STAT PO 03/26/17 13:01 03/26/17 13:05 DC 03/26/17 14:03 650 MG Ibuprofen (Advil Tab) 400 mg NOW STAT PO 03/26/17 16:34 03/26/17 16:35 DC 03/26/17 16:47 400 MG ECG Indication: chest pain Rate (beats per minute): 100 Rhythm: normal sinus Findings: T-wave inversion (V1 only), no ectopy, other (No ST elevations) ED Course 1249: The patient was evaluated in room C6. A complete history and physical exam was performed. 1301: Ordered Tylenol Tab 650 mg PO, Sodium Chloride 1000 ml @ 999 mls/hr IV 1438: I reevaluated the patient at this time. I recommended that she receive a CT scan to rule out a potential PE. She agreed. She notes that she is beginning to feel better, but she still has chills and feels warm. 1552: I discussed her test results with her at this time. We are still waiting on her mono spot test. She has developed a mild frontal headache that began 1 hour ago. No meningeal signs appreciated. 1633: The patient is still having chest pain and a very mild headache. She has no other complaints. 1634: Ordered Advil Tab 400 mg PO 1637: I spoke with Dr. Cochran of [facility]. We discussed the patient and her results. The patient will be further evaluated by them for further management as an inpatient. 1641: The patient is agreeable to the plan. She denies any vaginal bleeding, vaginal discharge, or pelvic pain. 1706: I reevaluated the patient with Ilsa DAVID. The patient's left breast appears to be erythematous compared to earlier. There is no crepitus. Medical Decision This is a 21-year-old female who presents with fever and chest pain. Differential diagnosis includes pneumonia, bronchitis, viral syndrome, sepsis, DKA, pulmonary embolism. I did perform a limited focused review of portions of the patient's old chart on the electronic medical record. The patient was treated as an inpatient on March 14 of this year for DKA. She was also seen on March 21 for abnormal blood work with a blood sugar level of 448. She was treated with insulin, saline, and then was discharged home. Her chest x-ray on March 14 showed hazy bibasilar opacities. Her flu test was negative. I did evaluate the patient as noted above. The patient is presenting with fever and left-sided chest pain. IV access was established. The patient was placed on a continuous diagnostic cardiac sonographer. I did order a sepsis workup. I did order and personally review the patient's 12-lead EKG and chest x-ray as described above. Urinalysis does not show signs of infection. A urine test is negative. I did order and review the patient's blood work as noted in the electronic medical record. She has significant leukocytosis as well as an elevated lactic acid. As the patient is having left-sided chest pain , is on control pills and was recently hospitalized and was concerned about the possibility of pulmonary embolism. I did discuss this with her and she agreed to the CAT scan. I did order a CT of the chest and sinuses. I did review the images myself as well as the radiology report as described above. No acute process was found. I did treat patient with Tylenol, normal saline and Motrin. She did develop a slight headache while here but has not had headaches since. She has no meningeal signs. The cause of her fever is unclear and so I did recommend hospitalization for antibiotics. I did discuss the case with the hospitalist and ed case manager. The physician gift shop assistant for the hospitalist service did evaluate the patient and noted that the left breast was significantly erythematous. I did reexamine her and she has developed erythema to the left breast which earlier was is not significantly present. This is likely the source of her fever and chest pain. She will be hospitalized for IV antibiotics. Medication Reconcilliation Current Medication List: was personally reviewed by me Blood Pressure Screening Patient's blood pressure: Normal blood pressure Blood pressure disposition: Did not require urgent referral Consults Time Called: 1630 Consulting Physician: Dr. Cochran - [facility] Returned Call: [phone] We discussed the patient and her results. The patient will be further evaluated by them for further inpatient treatment. Impression Primary Impression: Cellulitis of left breast Additional Impression: SIRS (systemic inflammatory response syndrome) Scribe Attestation The scribe's documentation has been prepared under my direct and personally reviewed by me in its entirety. I confirm that the note above accurately reflects all work, treatment, procedures, and medical decision making performed by me. Departure Information Dispostion Being Evaluated By Hospitalist Referrals No Doctor, Assigned (PCP) Patient Instructions [facility] Problem Qualifiers
[2017-03-26] MEDS: [UNRECOGNIZED DRUG - OTHER] SCH ×2 (20:00→23:25)
[2017-03-26] MEDS: CLINDAMYCIN IV 600 MG in DEXTROSE 5% 50ML 50 ML IV SCH (20:28)
[2017-03-26] MEDS: INSULIN ASPART 100 UNITS/ML 3 ML PEN SC SCH (20:48)
[2017-03-26] MEDS ORDERED: INSULIN DETEMIR FLEXPEN/FLEX TOUCH 100 UNITS/ML 3ML SC SCH (21:00)
[2017-03-26] MEDS ORDERED: IV FLUIDS COMPLETED PRN (21:15)
[2017-03-26] MEDS: KETOROLAC TROMETHAMINE 30 MG/ML VIAL IV PRN (21:37)
[2017-03-26 23:48] VITALS: BP 108/67; PULSE 97; TEMP 37; O2SAT 97
[2017-03-27] MEDS: CLINDAMYCIN IV 600 MG in DEXTROSE 5% 50ML 50 ML IV SCH ×2 (03:53→11:54)
[2017-03-27] MEDS: KETOROLAC TROMETHAMINE 30 MG/ML VIAL IV PRN (03:53)
[2017-03-27 06:23] LABS: BASO % 0.5 %; BASO ABS # 0.08 K/uL (0-0.2); COMPLETE YES; EOS % 0.8 %; HEMATOCRIT 34.1 % (37-47); IG% 0.4 %; LYMPH % 10.6 %; LYMPH ABS # 1.78 K/uL (1.2-3.4); MEAN CELL VOLUME 89.3 fL (80-100); MEAN CORPUSCULAR HEMOGLOBIN 30.9 pg (25-34); MEAN CORPUSCULAR HGB CONC 34.6 g/dl (32-36); MEAN PLATELET VOLUME 10.1 fL (7.4-10.4); NEUT % 81.7 %; PLATELET COUNT 196 K/uL (130-400); RED BLOOD COUNT 3.82 M/uL (4.2-5.4); WHITE BLOOD COUNT 16.78 K/uL (4.8-10.8)
[2017-03-27 07:02] LABS: BUN/CREATININE RATIO 14.3 (10-20); CALCIUM 8.2 mg/dl (8.5-10.1); CREATININE 0.65 mg/dl (0.60-1.20); POTASSIUM 3.4 mmol/L (3.5-5.1)
[2017-03-27 07:04] VITALS: BP 102/62; PULSE 85; TEMP 36.7; O2SAT 97
[2017-03-27] MEDS: [UNRECOGNIZED DRUG - OTHER] SCH (08:00)
[2017-03-27] MEDS: INSULIN ASPART 100 UNITS/ML 3 ML PEN SC SCH ×2 (08:29→13:12)
[2017-03-27 14:01] VITALS: BP 102/62; PULSE 85; TEMP 36.7; O2SAT 97
[2017-03-27] MEDS ORDERED: CLC/300 PO (14:27)
--- NOTE | 2017-03-27 14:30 | Discharge Instructions ---
Discharge Instructions Date of Service Mar 27, 2017. Admission Reason for Admission: Breast Pain, Lt Discharge Discharge Diagnosis / Problem: left breast cellulitis Discharge Goals Goal(s): Decrease discomfort, Learn about illness, Therapeutic intervention, Prevent Disease Progression Activity Recommendations Activity Limitations: as noted below Lifting Limitations: gradually increase as tolerated Exercise/Sports Limitations: gradually increase as tolerated May Resume Sexual Activity: when tolerated Shower/Bathe: no limitations Driving or Machine Use: no limitations . Instructions / Follow-Up Instructions / Follow-Up Francisco J Whiting were admitted to the hospital due to infection of the skin over your left breast. Please continue 10 days of oral antibiotics. If you develop diarrhea; please contact your PCP as you may have an infection called C.Diff Follow up on , Mar 29 with S as discussed. We recommend better control of your diabetes. Please follow up with endocrinology to help you achieve your goals. Thank you Current Hospital Diet Patient's current hospital diet: Diabetes Type 1 Diet Discharge Diet Recommended Diet: Diabetes Type 1 Diet Pending Studies Studies pending at discharge: no Medical Emergencies . Who to Call and When: Medical Emergencies: If at any time you feel your situation is an emergency, please call 911 immediately. . Non-Emergent Contact Non-Emergency issues call your: Primary Care Provider . . "Provider Documentation" section prepared by Bailey Reich. . VTE Core Measure Inpt VTE Proph given/why not?: SCD's
--- NOTE | 2017-03-27 17:48 | Discharge Summary ---
Discharge Summary Date of Service Mar 27, 2017. (Bailey Chung MD) Discharge Summary Admission Date: Mar 26, 2017 at 17:18 Discharge Date: Mar 27, 2017 Discharge Disposition: Home Principal Diagnosis: Left Breast Cellulitis Immunizations: Have You Had Influenza Vaccine: Unknown History of Tetanus Vaccine?: Unknown History of Pneumococcal: Unknown History of Hepatitis B Vaccine: Unknown Procedures: CT ANGIOGRAPHY OF THE CHEST, PULMONARY EMBOLUS PROTOCOL CLINICAL HISTORY: Chest pain, trouble breathing and dizziness. COMPARISON STUDY: Chest radiograph March 14, 2017 and March 26, 2017. TECHNIQUE: Following IV administration of 93 mL of Optiray-320, helical axial images of the chest were obtained utilizing the pulmonary embolus protocol. Maximal intensity projections and sagittal and coronal reformats were viewed on an independent 3D workstation. IV contrast was administered without complication. A dose lowering technique was utilized adhering to the principles of ALARA. FINDINGS: No pulmonary emboli are identified. Size of the heart is normal. There is no evidence of thoracic aortic dissection. No pericardial effusion is present. There are no enlarged thoracic lymph nodes. There is no pneumothorax. Central airways are patent. Ground glass opacities suggest atelectasis. There is no consolidation to suggest pneumonia. Central airways are patent. Bony thorax and upper abdomen are unremarkable. IMPRESSION: No pulmonary emboli identified. Sinus CT: IMPRESSION: 1. No significant paranasal sinus disease. See above. 2. Small mastoid effusions. 3. Right parotid sialolithiasis. (Bailey Chung MD) Medication Reconciliation New Medications: Clindamycin HCl (Clindamycin HCl) 300 Mg Cap 1 CAP PO TID for 10 Days, #30 CAP Continued Medications: Control Pills ( Control Pills) Tab 1 TAB PO DAILY, TAB Insulin Aspart (Novolog Flexpen) 100 Units/Ml Inj Unknown Dose PT does sliding scale according to what she eats. Insulin Detemir (Levemir) 100 Units/Ml Inj 27 UNITS SC HS Discharge Exam Review of Systems: Constitutional: No fever, No chills, No weakness, No fatigue Respiratory: No cough, No sputum, No wheezing, No shortness of breath, No dyspnea on exertion, No dyspnea at rest Cardiovascular: No chest pain Abdomen: No pain, No nausea, No vomiting Genitourinary - Female: No dysuria, No urinary frequency, No urinary urgency Physical Exam: General Appearance: no apparent distress Eyes: PERRL, EOMI ENT: hearing grossly normal Respiratory/Chest: lungs clear, normal breath sounds, no respiratory distress, no accessory muscle use Cardiovascular: regular rate, rhythm, no edema, no murmur Abdomen / GI: normal bowel sounds, non tender, soft Extremities: no calf tenderness, no pedal edema Neurologic/Psychiatric: alert, normal mood/affect Skin: + pertinent finding (Erythema over left breast, beyond the nipple/ areola; Improved since admission. ) (Bailey Chung MD) left breast erythema much improved Review of Systems: Constitutional: No fever, No chills Physical Exam: General Appearance: no apparent distress Respiratory/Chest: no respiratory distress Neurologic/Psychiatric: alert, oriented x 3 Skin: + pertinent finding (left breast erythema much improved within the pen marked area. ) (Salima Hurtado M.D.) Hospital Course This is a 21 y/o F with Type 1 DM who presented with fevers and chills. She was found to have left breast cellulitis. CT of chest did not reveal any abscesses. She was started on IV clindamycin and the erythema improved. She was discharged on Clindamycin PO. She will follow up with S in 2 days. She was also encouraged to follow up with endocrinology to manage her blood sugars. Total Time Spent: Greater than 30 minutes This includes examination of the patient, discharge planning, medication reconciliation, and communication with other providers. (Bailey Chung MD) Resident Physician Supervision Note: I independently interviewed and examined the patient and verified the castillo history and physical, reviewed labs and image studies, discussed the case with the resident Dr. Chung and agree with the findings and care plan. Total Time Spent: Less than 30 minutes (Salima Hurtado M.D.) Discharge Instructions Please refer to the electronic Patient Visit Report (Discharge Instructions) for additional information. (Bailey Chung MD) Follow-Up S in 2 days (Bailey Chung MD) Additional Copies To [facility]
== END 2017-03-27 15:04 | disposition home or self-care (01) ==
LOC: C.EDB 12:38 → C.MS4W 17:18 → ENRESERV 17:57
PROVIDERS: ADMIT Internal Medicine; ATTEND Family Medicine
DX: N61.0 Mastitis without abscess (principal); R42 Dizziness and giddiness; E11.9 Type 2 diabetes mellitus without complications; Z79.4 Long term (current) use of insulin; Z79.3 Long term (current) use of hormonal contraceptives; F17.200 Nicotine dependence, unspecified, uncomplicated